=== PATIENT | female | born 1940 | race Native Hawaiian/Other Pacific Islander ===

== ENCOUNTER 2016-09-06 08:35 | Inpatient (IN) | payer OTHER ==
[~2016-09-06 08:35] MED LIST: ACET-206 PO; ACTOS15 MG PO; BACLOFEN10 MG PO; BINOSTO70 MG PO; CELEXA40 MG PO; FERROUS SULF325 M1 PO; FLUT0.05 INH; FURO40TA93 PO; GABA300C2 PO; MAG-OXIDE400 MG PO; OLAN10TA2 PO; SENNA LAX8.6 MG PO; SIMV40TA57 PO; TRAM50TA PO
== END 2016-10-07 08:00 | disposition still patient (30) ==
LOC: PAVA 08:35
PROVIDERS: ADMIT Internal Medicine
DX: Z51.89 Encounter for other specified aftercare (principal)

== ENCOUNTER 2016-10-07 09:00 | Inpatient (IN) | payer OTHER | END 2016-11-07 08:37 | disposition still patient (30) | LOC: PAVA 09:00 | PROVIDERS: ADMIT Internal Medicine | DX: Z51.89 Encounter for other specified aftercare (principal) ==

== ENCOUNTER 2016-10-12 05:07 | Outpatient (CLI) | payer OTHER ==
[2016-10-12 06:16] LABS: PLATELET COUNT 197 K/uL (152-353)
[2016-10-12 06:38] LABS: POTASSIUM 3.7 mmol/L (3.6-5.2); SODIUM 130 mmol/L (136-145)
== END 2016-10-12 06:07 | disposition home or self-care (01) ==
LOC: LAB 05:07
PROVIDERS: Internal Medicine
DX: Z79.899 Other long term (current) drug therapy (principal); E11.9 Type 2 diabetes mellitus without complications; I10 Essential (primary) hypertension; Z79.01 Long term (current) use of anticoagulants; Z51.81 Encounter for therapeutic drug level monitoring
CPT/HCPCS: 36415; 80053; 80164; 83036; 85027; 85610

== ENCOUNTER 2016-10-20 14:41 | Outpatient (CLI) | payer OTHER | END 2016-10-20 20:59 | disposition home or self-care (01) | LOC: LAB 14:41 | DX: R82.99 Other abnormal findings in urine (principal) | CPT/HCPCS: 81000 ==

== ENCOUNTER 2016-10-29 05:30 | Outpatient (CLI) | payer OTHER | END 2016-10-29 23:11 | disposition home or self-care (01) | LOC: LAB 05:30 | DX: Z51.81 Encounter for therapeutic drug level monitoring (principal); R45.83 Excessive crying of child, adolescent or adult | CPT/HCPCS: 36415; 80164 ==

== ENCOUNTER 2016-11-07 09:12 | Inpatient (IN) | payer OTHER | END 2016-12-05 08:17 | disposition still patient (30) | LOC: PAVA 09:12 | PROVIDERS: ADMIT Internal Medicine | DX: Z51.89 Encounter for other specified aftercare (principal) ==

== ENCOUNTER 2016-11-08 04:43 | Outpatient (CLI) | payer OTHER | END 2016-11-08 06:43 | disposition home or self-care (01) | LOC: LAB 04:43 | DX: Z79.899 Other long term (current) drug therapy (principal); Z51.81 Encounter for therapeutic drug level monitoring | CPT/HCPCS: 85610 ==

== ENCOUNTER 2016-12-05 08:41 | Inpatient (IN) | payer OTHER | END 2017-01-05 08:02 | disposition still patient (30) | LOC: PAVA 08:41 | PROVIDERS: ADMIT Internal Medicine | DX: Z51.89 Encounter for other specified aftercare (principal) ==

== ENCOUNTER 2016-12-12 04:29 | Outpatient (CLI) | payer OTHER | END 2016-12-12 19:08 | disposition home or self-care (01) | LOC: LAB 04:29 | DX: Z79.01 Long term (current) use of anticoagulants (principal); Z51.81 Encounter for therapeutic drug level monitoring | CPT/HCPCS: 36415; 85610 ==

== ENCOUNTER 2016-12-21 07:13 | Outpatient (CLI) | payer OTHER ==
[2016-12-21 07:54] LABS: POTASSIUM 3.9 mmol/L (3.6-5.2); SODIUM 136 mmol/L (136-145)
== END 2016-12-21 08:13 | disposition home or self-care (01) ==
LOC: LAB 07:13
PROVIDERS: Internal Medicine
DX: I10 Essential (primary) hypertension (principal); E11.9 Type 2 diabetes mellitus without complications; K21.9 Gastro-esophageal reflux disease without esophagitis
CPT/HCPCS: 36415; 80048

== ENCOUNTER 2017-01-05 09:49 | Inpatient (IN) | payer OTHER | END 2017-02-04 08:30 | disposition still patient (30) | LOC: PAVA 09:49 | PROVIDERS: ADMIT Internal Medicine | DX: Z51.89 Encounter for other specified aftercare (principal) ==

== ENCOUNTER 2017-01-07 09:07 | Outpatient (CLI) | payer OTHER | END 2017-01-07 10:07 | disposition home or self-care (01) | LOC: LAB 09:07 | PROVIDERS: Internal Medicine | DX: E11.9 Type 2 diabetes mellitus without complications (principal); Z79.899 Other long term (current) drug therapy; Z79.01 Long term (current) use of anticoagulants; Z51.81 Encounter for therapeutic drug level monitoring | CPT/HCPCS: 36415; 80061; 83036; 83735; 85610 ==

== ENCOUNTER 2017-01-22 16:07 | Outpatient (CLI) | payer OTHER | END 2017-01-22 19:16 | disposition home or self-care (01) | LOC: LAB 16:07 | DX: E83.42 Hypomagnesemia (principal) | CPT/HCPCS: 83735 ==

== ENCOUNTER 2017-01-28 16:23 | Outpatient (CLI) | payer OTHER | END 2017-01-28 19:35 | disposition home or self-care (01) | LOC: LAB 16:23 | DX: Z16.24 Resistance to multiple antibiotics (principal) | CPT/HCPCS: 87081 ==

== ENCOUNTER 2017-02-04 08:48 | Inpatient (IN) | payer OTHER | END 2017-03-07 08:10 | disposition still patient (30) | LOC: PAVA 08:48 | PROVIDERS: ADMIT Internal Medicine | DX: Z51.89 Encounter for other specified aftercare (principal) ==

== ENCOUNTER 2017-02-06 06:44 | Outpatient (CLI) | payer OTHER | END 2017-02-06 19:08 | disposition home or self-care (01) | LOC: LAB 06:44 | DX: Z79.01 Long term (current) use of anticoagulants (principal) | CPT/HCPCS: 36415; 85610 ==

== ENCOUNTER 2017-02-08 05:49 | Outpatient (CLI) | payer OTHER | END 2017-02-08 07:00 | disposition home or self-care (01) | LOC: LAB 05:49 | DX: Z79.01 Long term (current) use of anticoagulants (principal); Z51.81 Encounter for therapeutic drug level monitoring | CPT/HCPCS: 36415; 85610 ==

== ENCOUNTER 2017-02-22 06:11 | Outpatient (CLI) | payer OTHER | END 2017-02-22 07:15 | disposition home or self-care (01) | LOC: LAB 06:11 | DX: Z79.01 Long term (current) use of anticoagulants (principal); Z51.81 Encounter for therapeutic drug level monitoring | CPT/HCPCS: 85610 ==

== ENCOUNTER 2017-03-07 06:35 | Outpatient (CLI) | payer OTHER | END 2017-03-07 19:13 | disposition home or self-care (01) | LOC: LAB 06:35 | DX: Z79.899 Other long term (current) drug therapy (principal); Z79.01 Long term (current) use of anticoagulants; Z51.81 Encounter for therapeutic drug level monitoring | CPT/HCPCS: 36415; 85610 ==

== ENCOUNTER 2017-03-07 08:25 | Inpatient (IN) | payer OTHER | END 2017-04-06 14:57 | disposition still patient (30) | LOC: PAVA 08:25 | PROVIDERS: ADMIT Internal Medicine | DX: Z51.89 Encounter for other specified aftercare (principal) ==

== ENCOUNTER 2017-03-15 12:02 | Outpatient (CLI) | payer OTHER | END 2017-03-15 19:28 | disposition home or self-care (01) | LOC: LAB 12:02 | DX: M85.88 Other specified disorders of bone density and structure, other site (principal) | CPT/HCPCS: 82310 ==

== ENCOUNTER 2017-04-06 15:09 | Inpatient (IN) | payer OTHER | END 2017-05-07 08:36 | disposition still patient (30) | LOC: PAVA 15:09 | PROVIDERS: ADMIT Internal Medicine | DX: Z51.89 Encounter for other specified aftercare (principal) ==

== ENCOUNTER 2017-04-11 07:14 | Outpatient (CLI) | payer OTHER ==
[2017-04-11 08:22] LABS: PLATELET COUNT 127 K/uL (152-353)
[2017-04-11 09:06] LABS: POTASSIUM 3.9 mmol/L (3.6-5.2); SODIUM 141 mmol/L (136-145)
== END 2017-04-11 17:51 | disposition home or self-care (01) ==
LOC: LAB 07:14
PROVIDERS: Internal Medicine
DX: Z79.899 Other long term (current) drug therapy (principal); E11.9 Type 2 diabetes mellitus without complications; I10 Essential (primary) hypertension; D68.8 Other specified coagulation defects; Z51.81 Encounter for therapeutic drug level monitoring
CPT/HCPCS: 80053; 80164; 83036; 85027; 85610

== ENCOUNTER 2017-04-30 03:41 | Outpatient (CLI) | payer OTHER | END 2017-04-30 04:45 | disposition home or self-care (01) | LOC: LAB 03:41 | DX: Z79.01 Long term (current) use of anticoagulants (principal); Z51.81 Encounter for therapeutic drug level monitoring | CPT/HCPCS: 36415; 85610 ==

== ENCOUNTER 2017-05-07 09:12 | Inpatient (IN) | payer OTHER | END 2017-06-07 08:11 | disposition still patient (30) | LOC: PAVA 09:12 | PROVIDERS: ADMIT Internal Medicine | DX: Z51.89 Encounter for other specified aftercare (principal) ==

== ENCOUNTER 2017-05-08 06:57 | Outpatient (CLI) | payer OTHER | END 2017-05-08 19:40 | disposition home or self-care (01) | LOC: LAB 06:57 | DX: Z79.01 Long term (current) use of anticoagulants (principal); Z51.81 Encounter for therapeutic drug level monitoring | CPT/HCPCS: 36415; 85610 ==

== ENCOUNTER 2017-06-07 08:27 | Inpatient (IN) | payer OTHER | END 2017-07-07 09:08 | disposition still patient (30) | LOC: PAVA 08:27 | PROVIDERS: ADMIT Internal Medicine | DX: Z51.89 Encounter for other specified aftercare (principal) ==

== ENCOUNTER 2017-06-10 06:43 | Outpatient (CLI) | payer OTHER | END 2017-06-10 18:58 | disposition home or self-care (01) | LOC: LAB 06:43 | DX: Z79.899 Other long term (current) drug therapy (principal); Z51.81 Encounter for therapeutic drug level monitoring | CPT/HCPCS: 85610 ==

== ENCOUNTER 2017-07-07 09:23 | Inpatient (IN) | payer OTHER | END 2017-08-07 10:24 | disposition still patient (30) | LOC: PAVA 09:23 | PROVIDERS: ADMIT Internal Medicine ==

== ENCOUNTER 2017-07-10 05:26 | Outpatient (CLI) | payer OTHER | END 2017-07-10 06:30 | disposition home or self-care (01) | LOC: LAB 05:26 | DX: E11.9 Type 2 diabetes mellitus without complications (principal); Z79.899 Other long term (current) drug therapy; Z79.01 Long term (current) use of anticoagulants; Z51.81 Encounter for therapeutic drug level monitoring | CPT/HCPCS: 83036; 83735; 85610 ==

== ENCOUNTER 2017-08-07 12:23 | Inpatient (IN) | payer OTHER | END 2017-09-06 08:12 | disposition still patient (30) | LOC: PAVA 12:23 | PROVIDERS: ADMIT Internal Medicine ==

== ENCOUNTER 2017-08-09 05:25 | Outpatient (CLI) | payer OTHER | END 2017-08-09 06:25 | disposition home or self-care (01) | LOC: LAB 05:25 | DX: Z79.01 Long term (current) use of anticoagulants (principal); Z51.81 Encounter for therapeutic drug level monitoring | CPT/HCPCS: 85610 ==

== ENCOUNTER 2017-09-06 08:54 | Inpatient (IN) | payer OTHER | END 2017-10-07 08:30 | disposition still patient (30) | LOC: PAVA 08:54 | PROVIDERS: ADMIT Internal Medicine ==

== ENCOUNTER 2017-09-11 06:06 | Outpatient (CLI) | payer OTHER | END 2017-09-11 21:07 | disposition home or self-care (01) | LOC: LAB 06:06 | DX: Z79.899 Other long term (current) drug therapy (principal); Z79.01 Long term (current) use of anticoagulants; Z51.81 Encounter for therapeutic drug level monitoring | CPT/HCPCS: 82310; 85610 ==

== ENCOUNTER 2017-10-01 10:32 | Outpatient (CLI) | payer OTHER ==
[2017-10-01 14:46] LABS: PLATELET COUNT 111 K/uL (152-353)
[2017-10-01 14:50] LABS: POTASSIUM 3.7 mmol/L (3.6-5.2); SODIUM 139 mmol/L (136-145)
== END 2017-10-01 19:29 | disposition home or self-care (01) ==
LOC: RAD 10:32 → LAB 10:32 → RAD 19:29
PROVIDERS: Internal Medicine
DX: J20.9 Acute bronchitis, unspecified (principal); R06.02 Shortness of breath
CPT/HCPCS: 80048; 83880; 85027

== ENCOUNTER 2017-10-02 05:04 | Outpatient (CLI) | payer OTHER | END 2017-10-02 19:05 | disposition home or self-care (01) | LOC: LAB 05:04 | DX: N39.0 Urinary tract infection, site not specified (principal) | CPT/HCPCS: 81000; 87077; 87086; 87088; 87186 ==

== ENCOUNTER 2017-10-07 09:05 | Inpatient (IN) | payer OTHER | END 2017-11-07 08:31 | disposition still patient (30) | LOC: PAVA 09:05 | PROVIDERS: ADMIT Internal Medicine ==

== ENCOUNTER 2017-10-10 05:11 | Outpatient (CLI) | payer OTHER ==
[2017-10-10 06:16] LABS: PLATELET COUNT 105 K/uL (152-353)
[2017-10-10 06:48] LABS: POTASSIUM 3.3 mmol/L (3.6-5.2); SODIUM 141 mmol/L (136-145)
== END 2017-10-10 21:42 | disposition home or self-care (01) ==
LOC: LAB 05:11
PROVIDERS: Internal Medicine
DX: R79.1 Abnormal coagulation profile (principal); Z51.81 Encounter for therapeutic drug level monitoring; E11.9 Type 2 diabetes mellitus without complications
CPT/HCPCS: 80053; 80164; 83036; 85027; 85610

== ENCOUNTER 2017-10-21 13:16 | Outpatient (CLI) | payer OTHER | END 2017-10-21 22:02 | disposition home or self-care (01) | LOC: RAD 13:16 | DX: R09.02 Hypoxemia (principal) ==

== ENCOUNTER 2017-11-07 09:37 | Inpatient (IN) | payer OTHER | END 2017-12-05 08:07 | disposition still patient (30) | LOC: PAVA 09:37 | PROVIDERS: ADMIT Internal Medicine ==

== ENCOUNTER 2017-11-11 06:33 | Outpatient (CLI) | payer OTHER | END 2017-11-11 20:21 | disposition home or self-care (01) | LOC: LAB 06:33 | DX: Z79.899 Other long term (current) drug therapy (principal); Z51.81 Encounter for therapeutic drug level monitoring | CPT/HCPCS: 36415; 85610 ==

== ENCOUNTER 2017-12-05 08:55 | Inpatient (IN) | payer OTHER | END 2018-01-05 08:00 | disposition still patient (30) | LOC: PAVA 08:55 | PROVIDERS: ADMIT Internal Medicine ==

== ENCOUNTER 2017-12-16 03:09 | Outpatient (CLI) | payer OTHER | END 2017-12-16 21:29 | disposition home or self-care (01) | LOC: LAB 03:09 | DX: Z79.01 Long term (current) use of anticoagulants (principal); Z51.81 Encounter for therapeutic drug level monitoring | CPT/HCPCS: 36415; 85610 ==

== ENCOUNTER 2018-01-05 09:00 | Inpatient (IN) | payer OTHER | END 2018-02-04 08:11 | disposition still patient (30) | LOC: PAVA 09:00 | PROVIDERS: ADMIT Internal Medicine ==

== ENCOUNTER 2018-01-08 08:46 | Outpatient (CLI) | payer OTHER | END 2018-01-08 22:25 | disposition home or self-care (01) | LOC: RAD 08:46 | DX: R05 Cough (principal) ==

== ENCOUNTER 2018-01-10 10:41 | Outpatient (CLI) | payer OTHER | END 2018-01-10 20:25 | disposition home or self-care (01) | LOC: LAB 10:41 | PROVIDERS: Internal Medicine | DX: E11.9 Type 2 diabetes mellitus without complications (principal); Z79.899 Other long term (current) drug therapy; R79.1 Abnormal coagulation profile | CPT/HCPCS: 36415; 80061; 83036; 83735; 85610 ==

== ENCOUNTER 2018-01-24 06:07 | Outpatient (CLI) | payer OTHER | END 2018-01-24 22:23 | disposition home or self-care (01) | LOC: LAB 06:07 | DX: Z79.01 Long term (current) use of anticoagulants (principal); Z51.81 Encounter for therapeutic drug level monitoring | CPT/HCPCS: 36415; 85610 ==

== ENCOUNTER 2018-01-27 04:15 | Outpatient (CLI) | payer OTHER | END 2018-01-27 22:48 | disposition home or self-care (01) | LOC: LAB 04:15 → RAD 04:15 → LAB 22:48 | DX: R79.1 Abnormal coagulation profile (principal); R06.02 Shortness of breath | CPT/HCPCS: 36415; 85610 ==

== ENCOUNTER 2018-02-04 08:45 | Inpatient (IN) | payer OTHER ==
[~2018-02-04] VITALS: Ht 33 cm; Wt 0.5 kg
[2018-02-16] MEDS ORDERED: CALCIUM 600+D31 TA2 PO (00:25)
[2018-02-16] MEDS ORDERED: TYLENOL325 MG PO (00:31)
[2018-02-16] MEDS ORDERED: ACTOS45 MG PO (00:34)
[2018-02-16] MEDS ORDERED: DIVA500T2 PO (00:36)
[2018-02-16] MEDS ORDERED: DOCU100C10 PO (00:39)
[2018-02-16] MEDS ORDERED: LEXAPRO10 MG PO (00:41)
[2018-02-16] MEDS ORDERED: MULTIVITAMIN AD1 TAB PO (00:42)
[2018-02-16] MEDS ORDERED: OMEP20CA PO (00:44)
[2018-02-16] MEDS ORDERED: NAMZARIC 28-101 CAP PO (00:45)
[2018-02-16] MEDS ORDERED: WARF4TAB7 PO (00:46)
[2018-02-16] MEDS ORDERED: DENO60SO SC (00:49)
[2018-02-16] MEDS ORDERED: ALBUSOL INH (00:54)
[2018-02-16] MEDS ORDERED: SENNA-PLUS1 TAB PO (00:56)
== END 2018-03-07 08:20 | disposition still patient (30) ==
LOC: PAVA 08:45
PROVIDERS: ADMIT Internal Medicine
DX: J96.00 Acute respiratory failure, unspecified whether with hypoxia or hypercapnia (principal); J81.1 Chronic pulmonary edema; I69.351 Hemiplegia and hemiparesis following cerebral infarction affecting right dominant side; E87.6 Hypokalemia; E11.9 Type 2 diabetes mellitus without complications; I48.91 Unspecified atrial fibrillation; R91.8 Other nonspecific abnormal finding of lung field; I25.9 Chronic ischemic heart disease, unspecified; I10 Essential (primary) hypertension; K21.9 Gastro-esophageal reflux disease without esophagitis
CPT/HCPCS: 82550; 82553; 83735; 84484

== ENCOUNTER 2018-02-10 03:31 | Outpatient (CLI) | payer OTHER | END 2018-02-10 18:50 | disposition home or self-care (01) | LOC: LABW 03:31 | DX: Z79.899 Other long term (current) drug therapy (principal); Z51.81 Encounter for therapeutic drug level monitoring | CPT/HCPCS: 36415; 85610 ==

== ENCOUNTER 2018-02-15 14:25 | Inpatient (IN) | payer OTHER ==
[~2018-02-15] VITALS: Ht 162.6 cm; Wt 98.0 kg
[2018-02-15] VITALS (15 sets, daily range): BP systolic 84–121; BP diastolic 45–69; TEMP 97.9–98.7; Ht 162.6 cm; Wt 98.0 kg
[2018-02-15 14:42] LABS: PLATELET COUNT 113 K/uL (152-353)
[2018-02-15 14:51] LABS: POTASSIUM 3.1 mmol/L (3.6-5.2)
[2018-02-16] VITALS (26 sets, daily range): BP systolic 90–118; BP diastolic 45–70; TEMP 98–101.6
[2018-02-16] MEDS ORDERED: CALCIUM 600+D31 TA2 PO (00:25)
[2018-02-16] MEDS ORDERED: TYLENOL325 MG PO (00:31)
[2018-02-16] MEDS ORDERED: ACTOS45 MG PO (00:34)
[2018-02-16] MEDS ORDERED: DIVA500T2 PO (00:36)
[2018-02-16] MEDS ORDERED: DOCU100C10 PO (00:39)
[2018-02-16] MEDS ORDERED: LEXAPRO10 MG PO (00:41)
[2018-02-16] MEDS ORDERED: MULTIVITAMIN AD1 TAB PO (00:42)
[2018-02-16] MEDS ORDERED: OMEP20CA PO (00:44)
[2018-02-16] MEDS ORDERED: NAMZARIC 28-101 CAP PO (00:45)
[2018-02-16] MEDS ORDERED: WARF4TAB7 PO (00:46)
[2018-02-16] MEDS ORDERED: DENO60SO SC (00:49)
[2018-02-16] MEDS ORDERED: ALBUSOL INH (00:54)
[2018-02-16] MEDS ORDERED: SENNA-PLUS1 TAB PO (00:56)
[2018-02-16 07:58] LABS: PLATELET COUNT 102 K/uL (152-353)
[2018-02-16 08:04] LABS: POTASSIUM 3.6 mmol/L (3.6-5.2)
[2018-02-17] VITALS (24 sets, daily range): BP systolic 80–132; BP diastolic 26–86; TEMP 98.1–99
[2018-02-18] VITALS (22 sets, daily range): BP systolic 69–117; BP diastolic 30–90; TEMP 98–99.3
[2018-02-18 06:14] LABS: PLATELET COUNT 119 K/uL (152-353)
[2018-02-18 06:46] LABS: POTASSIUM 3.2 mmol/L (3.6-5.2)
[2018-02-19] VITALS (12 sets, daily range): BP systolic 92–117; BP diastolic 37–65; TEMP 98.1–99
[2018-02-19 05:36] LABS: PLATELET COUNT 136 K/uL (152-353)
[2018-02-19 06:05] LABS: POTASSIUM 3.5 mmol/L (3.6-5.2)
== END 2018-02-19 12:17 | DRG 291 ==
LOC: LAB 14:25 → ICU 16:00
PROVIDERS: ADMIT Internal Medicine
DX: I50.33 Acute on chronic diastolic (congestive) heart failure (principal); J96.01 Acute respiratory failure with hypoxia; J18.8 Other pneumonia, unspecified organism; J81.1 Chronic pulmonary edema; I69.851 Hemiplegia and hemiparesis following other cerebrovascular disease affecting right dominant side; E87.6 Hypokalemia; E11.9 Type 2 diabetes mellitus without complications; I10 Essential (primary) hypertension; E78.00 Pure hypercholesterolemia, unspecified; I48.91 Unspecified atrial fibrillation; R91.8 Other nonspecific abnormal finding of lung field
CPT/HCPCS: 36415; 51702; 80048; 80053; 81000; 82040; 82247; 82550; 82553; 82962; 83735; 83880; 84155; 84450; 84460; 84484; 85027; 87040; 93005; 94760; J0696; J1940; J1956

== ENCOUNTER 2018-03-07 08:37 | Inpatient (IN) | payer OTHER ==
[~2018-03-07 08:37] MED LIST changes: +ACTOS45 MG PO; +ALBUSOL INH; +CALCIUM 600+D31 TA2 PO; +DENO60SO SC; +DIVA500T2 PO; +DOCU100C10 PO; +LEXAPRO10 MG PO; +MULTIVITAMIN AD1 TAB PO; +NAMZARIC 28-101 CAP PO; +OMEP20CA PO; +SENNA-PLUS1 TAB PO; +TYLENOL325 MG PO; +WARF4TAB7 PO
== END 2018-04-06 14:15 | disposition still patient (30) ==
LOC: PAVA 08:37
PROVIDERS: ADMIT Internal Medicine

== ENCOUNTER 2018-03-10 04:35 | Outpatient (CLI) | payer OTHER | END 2018-03-10 21:57 | disposition home or self-care (01) | LOC: LAB 04:35 | DX: Z79.899 Other long term (current) drug therapy (principal); Z51.81 Encounter for therapeutic drug level monitoring; E78.4 Other hyperlipidemia | CPT/HCPCS: 82310; 85610 ==

== ENCOUNTER 2018-03-13 22:12 | Outpatient (CLI) | payer OTHER ==
[2018-03-13 22:46] LABS: PLATELET COUNT 99 K/uL (152-353)
== END 2018-03-13 23:10 | disposition home or self-care (01) ==
LOC: LAB 22:12
PROVIDERS: Internal Medicine
DX: J18.9 Pneumonia, unspecified organism (principal); R82.99 Other abnormal findings in urine
CPT/HCPCS: 81000; 85027; 87088

== ENCOUNTER 2018-03-26 22:44 | Outpatient (CLI) | payer OTHER | END 2018-03-26 23:30 | disposition home or self-care (01) | LOC: LAB 22:44 | DX: Z79.2 Long term (current) use of antibiotics (principal); Z87.440 Personal history of urinary (tract) infections; R82.99 Other abnormal findings in urine | CPT/HCPCS: 81000; 87088 ==

== ENCOUNTER 2018-04-06 14:30 | Inpatient (IN) | payer OTHER | END 2018-05-07 08:00 | disposition still patient (30) | LOC: PAVA 14:30 | PROVIDERS: ADMIT Internal Medicine ==

== ENCOUNTER 2018-04-10 03:54 | Outpatient (CLI) | payer OTHER ==
[2018-04-10 05:56] LABS: PLATELET COUNT 118 K/uL (152-353)
[2018-04-10 06:20] LABS: POTASSIUM 5.2 mmol/L (3.6-5.2)
== END 2018-04-10 19:27 | disposition home or self-care (01) ==
LOC: LAB 03:54
PROVIDERS: Internal Medicine
DX: Z79.899 Other long term (current) drug therapy (principal); Z51.81 Encounter for therapeutic drug level monitoring; E11.9 Type 2 diabetes mellitus without complications
CPT/HCPCS: 80053; 80164; 83036; 85027; 85610

== ENCOUNTER 2018-04-21 03:35 | Outpatient (CLI) | payer OTHER | END 2018-04-21 22:59 | disposition home or self-care (01) | LOC: LAB 03:35 | DX: N39.0 Urinary tract infection, site not specified (principal) | CPT/HCPCS: 81000 ==

== ENCOUNTER 2018-05-07 09:00 | Inpatient (IN) | payer OTHER | END 2018-06-07 09:56 | disposition still patient (30) | LOC: PAVA 09:00 | PROVIDERS: ADMIT Internal Medicine ==

== ENCOUNTER 2018-05-12 05:29 | Outpatient (CLI) | payer OTHER | END 2018-05-12 19:33 | disposition home or self-care (01) | LOC: LAB 05:29 | DX: Z79.899 Other long term (current) drug therapy (principal); D68.9 Coagulation defect, unspecified | CPT/HCPCS: 36415; 85610 ==

== ENCOUNTER 2018-06-07 10:08 | Inpatient (IN) | payer OTHER | END 2018-07-07 08:39 | disposition still patient (30) | LOC: PAVA 10:08 | PROVIDERS: ADMIT Internal Medicine ==

== ENCOUNTER 2018-06-13 05:33 | Outpatient (CLI) | payer OTHER | END 2018-06-13 23:23 | disposition home or self-care (01) | LOC: LAB 05:33 | DX: Z51.81 Encounter for therapeutic drug level monitoring (principal) | CPT/HCPCS: 36415; 85610 ==

== ENCOUNTER 2018-07-07 08:57 | Inpatient (IN) | payer OTHER | END 2018-08-07 08:10 | disposition still patient (30) | LOC: PAVA 08:57 | PROVIDERS: ADMIT Internal Medicine ==

== ENCOUNTER 2018-07-10 06:27 | Outpatient (CLI) | payer OTHER | END 2018-07-10 20:31 | disposition home or self-care (01) | LOC: LAB 06:27 | DX: E11.9 Type 2 diabetes mellitus without complications (principal); R79.1 Abnormal coagulation profile | CPT/HCPCS: 36415; 83036; 83735; 85610 ==

== ENCOUNTER 2018-08-07 08:25 | Inpatient (IN) | payer OTHER ==
[2018-08-17] MEDS ORDERED: NAMZARIC 28-101 CAP PO (03:26)
== END 2018-09-06 08:04 | disposition still patient (30) ==
LOC: PAVA 08:25
PROVIDERS: ADMIT Internal Medicine
DX: J18.9 Pneumonia, unspecified organism (principal); I69.351 Hemiplegia and hemiparesis following cerebral infarction affecting right dominant side; F32.89 Other specified depressive episodes; E11.9 Type 2 diabetes mellitus without complications; E78.5 Hyperlipidemia, unspecified; K21.9 Gastro-esophageal reflux disease without esophagitis; I10 Essential (primary) hypertension

== ENCOUNTER 2018-08-08 12:04 | Outpatient (CLI) | payer OTHER ==
[2018-08-08 12:44] LABS: PLATELET COUNT 136 K/uL (152-353)
[2018-08-08 13:09] LABS: POTASSIUM 3.5 mmol/L (3.6-5.2)
== END 2018-08-08 21:50 | disposition home or self-care (01) ==
LOC: LAB 12:04
PROVIDERS: Internal Medicine
DX: Z51.81 Encounter for therapeutic drug level monitoring (principal); R53.1 Weakness; Z79.899 Other long term (current) drug therapy; R53.81 Other malaise; R53.83 Other fatigue; R41.82 Altered mental status, unspecified
CPT/HCPCS: 36415; 80053; 81000; 85027; 85610

== ENCOUNTER 2018-08-14 08:51 | Outpatient (CLI) | payer OTHER | END 2018-08-14 20:11 | disposition home or self-care (01) | LOC: CT 08:51 | DX: R41.82 Altered mental status, unspecified (principal); R53.83 Other fatigue ==

== ENCOUNTER 2018-08-16 19:55 | Inpatient (IN) | payer OTHER ==
[~2018-08-16] VITALS: Ht 157.5 cm; Wt 93.1 kg
[2018-08-16 19:55] VITALS: BP 141/72; TEMP 98.5
[2018-08-16 20:19] LABS: PLATELET COUNT 214 K/uL (152-353)
[2018-08-16 20:28] VITALS: TEMP 101.8
[2018-08-16 20:39] LABS: POTASSIUM 2.6 mmol/L (3.6-5.2)
[2018-08-16 22:42] VITALS: BP 149/69; TEMP 99.1
[2018-08-17 02:16] VITALS: BP 121/62; TEMP 99.4; Ht 157.5 cm; Wt 93.1 kg
[2018-08-17] MEDS ORDERED: NAMZARIC 28-101 CAP PO (03:26)
[2018-08-17 04:12] VITALS: BP 121/62; TEMP 99.4
[2018-08-17 05:24] LABS: PLATELET COUNT 181 K/uL (152-353)
[2018-08-17 07:09] LABS: POTASSIUM 2.5 mmol/L (3.6-5.2)
[2018-08-17 08:04] VITALS: BP 123/72; TEMP 97.3
[2018-08-17 12:06] VITALS: BP 101/45; TEMP 68.7
[2018-08-17 16:08] VITALS: BP 104/52; TEMP 98.6
[2018-08-17 20:19] VITALS: BP 112/64; TEMP 97.9
[2018-08-18 00:57] VITALS: BP 120/60; TEMP 98
[2018-08-18 04:00] VITALS: BP 100/64; TEMP 98
[2018-08-18 08:00] VITALS: BP 98/56; TEMP 97.6
[2018-08-18 12:00] VITALS: BP 112/65
[2018-08-18 16:00] VITALS: BP 100/50; TEMP 97.3
[2018-08-18 20:00] VITALS: BP 99/57; TEMP 97.7
[2018-08-19] VITALS: BP 107/40; TEMP 98.5
[2018-08-19 04:00] VITALS: BP 106/53; TEMP 98.1
[2018-08-19 06:25] LABS: POTASSIUM 4.4 mmol/L (3.6-5.2)
[2018-08-19 08:00] VITALS: BP 99/73; TEMP 98.2
[2018-08-19 12:00] VITALS: BP 97/50; TEMP 98
== END 2018-08-19 16:50 | DRG 193 ==
LOC: ED 19:55 → MED/SURG 21:20
PROVIDERS: Family Medicine; ADMIT Internal Medicine
DX: J18.8 Other pneumonia, unspecified organism (principal); J96.01 Acute respiratory failure with hypoxia; J44.0 Chronic obstructive pulmonary disease with (acute) lower respiratory infection; I13.0 Hypertensive heart and chronic kidney disease with heart failure and stage 1 through stage 4 chronic kidney disease, or unspecified chronic kidney disease; I50.1 Left ventricular failure, unspecified; I69.351 Hemiplegia and hemiparesis following cerebral infarction affecting right dominant side; J44.1 Chronic obstructive pulmonary disease with (acute) exacerbation; M81.8 Other osteoporosis without current pathological fracture; E11.22 Type 2 diabetes mellitus with diabetic chronic kidney disease; N18.2 Chronic kidney disease, stage 2 (mild)
CPT/HCPCS: 36415; 80048; 80053; 83605; 83880; 85027; 85610; 94760; 96361; 96365; 96372; 99284; J0456; J0696; J1940; J3430

== ENCOUNTER 2018-09-06 08:17 | Inpatient (IN) | payer OTHER | END 2018-10-07 10:20 | disposition still patient (30) | LOC: PAVA 08:17 | PROVIDERS: ADMIT Internal Medicine | CPT/HCPCS: 82310; 85610 ==

== ENCOUNTER 2018-09-11 03:45 | Outpatient (CLI) | payer OTHER | END 2018-09-11 23:32 | disposition home or self-care (01) | LOC: LAB 03:45 | DX: Z79.899 Other long term (current) drug therapy (principal); E78.5 Hyperlipidemia, unspecified ==

== ENCOUNTER 2018-09-12 13:37 | Outpatient (CLI) | payer OTHER | END 2018-09-12 23:14 | disposition home or self-care (01) | LOC: RAD 13:37 | DX: Z78.0 Asymptomatic menopausal state (principal) ==

== ENCOUNTER 2018-10-07 10:45 | Inpatient (IN) | payer OTHER | END 2018-11-07 14:16 | disposition still patient (30) | LOC: PAVA 10:45 | PROVIDERS: ADMIT Internal Medicine ==

== ENCOUNTER 2018-10-20 03:42 | Outpatient (CLI) | payer OTHER ==
[2018-10-20 04:37] LABS: PLATELET COUNT 162 K/uL (152-353)
[2018-10-20 04:58] LABS: POTASSIUM 4.1 mmol/L (3.6-5.2)
== END 2018-10-20 22:15 | disposition home or self-care (01) ==
LOC: LAB 03:42
PROVIDERS: Internal Medicine
DX: Z79.01 Long term (current) use of anticoagulants (principal); Z51.81 Encounter for therapeutic drug level monitoring; I10 Essential (primary) hypertension; E11.9 Type 2 diabetes mellitus without complications
CPT/HCPCS: 80053; 80164; 83036; 85027; 85610

== ENCOUNTER 2018-10-24 11:45 | Outpatient (CLI) | payer OTHER | END 2018-10-24 20:25 | disposition home or self-care (01) | LOC: RAD 11:45 | DX: T17.928A Food in respiratory tract, part unspecified causing other injury, initial encounter (principal) ==

== ENCOUNTER 2018-11-03 02:41 | Outpatient (CLI) | payer OTHER | END 2018-11-03 19:07 | disposition home or self-care (01) | LOC: LAB 02:41 | DX: R79.1 Abnormal coagulation profile (principal) | CPT/HCPCS: 36415; 85610 ==

== ENCOUNTER 2018-11-07 14:30 | Inpatient (IN) | payer OTHER | END 2018-12-05 09:14 | disposition still patient (30) | LOC: PAVA 14:30 | PROVIDERS: ADMIT Internal Medicine ==

== ENCOUNTER 2018-11-13 04:30 | Outpatient (CLI) | payer OTHER | END 2018-11-13 22:19 | LOC: LAB 04:30 | DX: Z79.899 Other long term (current) drug therapy (principal) | CPT/HCPCS: 85610 ==

== ENCOUNTER 2018-12-05 09:44 | Inpatient (IN) | payer OTHER | END 2019-01-05 07:54 | disposition still patient (30) | LOC: PAVA 09:44 | PROVIDERS: ADMIT Internal Medicine ==

== ENCOUNTER 2018-12-15 03:13 | Outpatient (CLI) | payer OTHER | END 2018-12-15 19:26 | disposition home or self-care (01) | LOC: LAB 03:13 | DX: Z79.899 Other long term (current) drug therapy (principal); R79.1 Abnormal coagulation profile | CPT/HCPCS: 36415; 85610 ==

== ENCOUNTER 2019-01-05 08:29 | Inpatient (IN) | payer OTHER | END 2019-02-04 09:39 | disposition still patient (30) | LOC: PAVA 08:29 | PROVIDERS: ADMIT Internal Medicine ==

== ENCOUNTER 2019-01-12 04:40 | Outpatient (CLI) | payer OTHER | END 2019-01-12 22:53 | disposition home or self-care (01) | LOC: LAB 04:40 | PROVIDERS: Internal Medicine | DX: E11.21 Type 2 diabetes mellitus with diabetic nephropathy (principal); E03.9 Hypothyroidism, unspecified; R79.1 Abnormal coagulation profile; Z13.220 Encounter for screening for lipoid disorders | CPT/HCPCS: 36415; 80061; 83036; 83735; 85610 ==

== ENCOUNTER 2019-02-04 10:48 | Inpatient (IN) | payer OTHER | END 2019-03-07 08:12 | disposition still patient (30) | LOC: PAVA 10:48 | PROVIDERS: ADMIT Internal Medicine | DX: Z51.89 Encounter for other specified aftercare (principal) ==

== ENCOUNTER 2019-02-05 03:45 | Outpatient (CLI) | payer OTHER | END 2019-02-05 19:45 | LOC: LAB 03:45 | DX: Z79.899 Other long term (current) drug therapy (principal) | CPT/HCPCS: 85610 ==

== ENCOUNTER 2019-03-07 08:25 | Inpatient (IN) | payer OTHER | END 2019-04-06 08:29 | disposition still patient (30) | LOC: PAVA 08:25 | PROVIDERS: ADMIT Internal Medicine ==

== ENCOUNTER 2019-03-11 05:12 | Outpatient (CLI) | payer OTHER | END 2019-03-11 23:22 | disposition home or self-care (01) | LOC: LAB 05:12 | DX: Z79.899 Other long term (current) drug therapy (principal); R79.1 Abnormal coagulation profile | CPT/HCPCS: 82310; 85610 ==

== ENCOUNTER 2019-04-06 09:13 | Inpatient (IN) | payer OTHER | END 2019-05-07 09:07 | disposition still patient (30) | LOC: PAVA 09:13 | PROVIDERS: ADMIT Internal Medicine ==

== ENCOUNTER 2019-04-07 04:42 | Outpatient (CLI) | payer OTHER ==
[2019-04-07 06:29] LABS: POTASSIUM 4.1 mmol/L (3.6-5.2)
[2019-04-07 06:34] LABS: PLATELET COUNT 164 K/uL (152-353)
== END 2019-04-07 19:06 | disposition home or self-care (01) ==
LOC: LAB 04:42
PROVIDERS: Internal Medicine
DX: I10 Essential (primary) hypertension (principal); Z79.899 Other long term (current) drug therapy; Z79.01 Long term (current) use of anticoagulants
CPT/HCPCS: 80053; 80164; 83036; 85027; 85610

== ENCOUNTER 2019-04-08 15:41 | Outpatient (CLI) | payer OTHER | END 2019-04-08 19:25 | disposition home or self-care (01) | LOC: LAB 15:41 | DX: R19.7 Diarrhea, unspecified (principal) | CPT/HCPCS: 83630; 87324; 87328; 87329; 87449 ==

== ENCOUNTER 2019-04-20 20:09 | Outpatient (CLI) | payer OTHER | END 2019-04-20 22:43 | disposition home or self-care (01) | LOC: LAB 20:09 | DX: R19.7 Diarrhea, unspecified (principal) | CPT/HCPCS: 87328; 87329 ==

== ENCOUNTER 2019-04-22 05:05 | Outpatient (CLI) | payer OTHER | END 2019-04-22 23:38 | disposition home or self-care (01) | LOC: LAB 05:05 | DX: Z79.899 Other long term (current) drug therapy (principal); Z79.01 Long term (current) use of anticoagulants | CPT/HCPCS: 36415; 85610 ==

== ENCOUNTER 2019-04-30 14:35 | Outpatient (CLI) | payer OTHER | END 2019-04-30 23:37 | disposition home or self-care (01) | LOC: LAB 14:35 | DX: A07.1 Giardiasis [lambliasis] (principal) | CPT/HCPCS: 87328; 87329 ==

== ENCOUNTER 2019-05-07 10:03 | Inpatient (IN) | payer OTHER ==
[2019-05-13] MEDS ORDERED: POTA20TA4 PO (11:57)
[2019-05-13] MEDS ORDERED: ERTAPENEM1 GM IM (12:07)
[2019-05-13] MEDS ORDERED: VANCOMYCIN HCL1 GM IV (12:07)
== END 2019-06-07 15:58 | disposition still patient (30) ==
LOC: PAVA 10:03
PROVIDERS: ADMIT Internal Medicine

== ENCOUNTER 2019-05-09 06:35 | Outpatient (CLI) | payer OTHER ==
[2019-05-09 07:07] LABS: PLATELET COUNT 183 K/uL (152-353)
[2019-05-09 07:24] LABS: POTASSIUM 3.2 mmol/L (3.6-5.2)
== END 2019-05-09 23:31 | disposition home or self-care (01) ==
LOC: LAB 06:35
PROVIDERS: Internal Medicine
DX: Z79.899 Other long term (current) drug therapy (principal); R09.89 Other specified symptoms and signs involving the circulatory and respiratory systems; Z79.01 Long term (current) use of anticoagulants
CPT/HCPCS: 36415; 80053; 85027; 85610

== ENCOUNTER 2019-05-10 07:15 | Inpatient (IN) | payer OTHER ==
[~2019-05-10] VITALS: Ht 154.9 cm; Wt 96.8 kg
--- NOTE | 2019-05-10 07:55 | NUR ---
PT ARRIVED TO ROOM 129, TRANSFERRED PT TO BED FROM [facility] BY [facility]IFT WITHOUT DIFFICULTY, PT TOLERATED WELL. V/S DONE, PT IS RESTING QUIETLY WITH EYES CLOSED, BRIEF CLEAN AND DRY, RAPID BREATHING WITH ACCESSORY MUSCLES, BREATH SOUNDS EXPIRATORY WHEEZING IN ALL QUADRANTS AND CRACKLES AT TIMES, WOKE UP PATIENT AND ENCOURAGED TO COUGH, PT IS VERY DROWSY, UNABLE TO GET HER TO WAKE UP ENOUGH TO TAKE A DEEP BREATH AND COUGH. LAB IN TO DRAW BLOOD. PT WAS RUNNING A TEMP OF 100.9AX UPON ARRIVAL TO FLOOR, PT WAS GIVEN TYLENOL 650MG PO AT [facility] THIS MORNING @ 0530. WILL RECHECK AND CONTINUE TO MONITOR. NO BREAKDOWN NOTED, PT HAS RT SIDED WEAKNESS, DOES NOT WALK, AND IS BED BOUND.
[2019-05-10 08:51] LABS: PLATELET COUNT 200 K/uL (152-353)
[2019-05-10 09:05] LABS: POTASSIUM 2.8 mmol/L (3.6-5.2)
[2019-05-10 09:29] VITALS: BP 107/51; TEMP 100.9; Ht 154.9 cm; Wt 96.8 kg
--- NOTE | 2019-05-10 10:42 | NUR ---
PT DEEP SUCTIONED AT 0832 FOR SPUTUM CULTURE. NO ADVERSE REACTIONS NOTED AT THIS TIME. PRODUCTIVE COUGH NOTED AFTER PROCEDURE. NO RD NOTED AT THIS TIME.
[2019-05-10 12:00] VITALS: BP 113/51; TEMP 98.5
[2019-05-10 16:00] VITALS: BP 133/59; TEMP 99.3
--- NOTE | 2019-05-10 19:55 | NUR ---
RN TRANSITIONAL CARE WENT TO CHANGE PTS BRIEF, SMALL AMOUNT OF URINE NOTED ON BRIEF, PRESSED ON PTS BLADDER, PT C/O PAIN TO ABDOMEN, BANUELOS CATHETER INSERTED, 300ML TEA COLORED URINE IN DRAINAGE BAG, LEFT BANUELOS IN UNTIL TOMORROW MORNING WHEN DR GARZA COMES IN TO ASSESS PT. PT TOLERATED WELL
[2019-05-10 20:00] VITALS: BP 109/53; TEMP 98.7
[2019-05-10 23:55] VITALS: BP 114/54; TEMP 100
[2019-05-11 04:00] VITALS: BP 100/37; TEMP 98.4
[2019-05-11 05:33] LABS: PLATELET COUNT 178 K/uL (152-353)
[2019-05-11 05:47] LABS: POTASSIUM 3.7 mmol/L (3.6-5.2)
[2019-05-11 08:00] VITALS: BP 105/46; TEMP 98.4
[2019-05-11 12:00] VITALS: BP 111/57; TEMP 98.7
[2019-05-11 16:00] VITALS: BP 101/54; TEMP 98.9
[2019-05-11 19:53] VITALS: BP 126/60; TEMP 99.3
[2019-05-12] VITALS (7 sets, daily range): BP systolic 97–121; BP diastolic 41–59; TEMP 98.3–98.8
--- NOTE | 2019-05-12 20:10 | NUR ---
PM ASSESSMENT COMPLETE.
--- NOTE | 2019-05-13 02:00 | NUR ---
PT STATES THAT "SHE WILL KNOCK THE SHIT OUT OF ME". I INSTRUCTED PT THAT WE WERE ONLY TRYING TO GET HER CLEANED UP AND REPOSTIONED
[2019-05-13 03:53] VITALS: BP 100/36; TEMP 98
[2019-05-13 05:14] LABS: PLATELET COUNT 195 K/uL (152-353)
[2019-05-13 05:33] LABS: POTASSIUM 3.8 mmol/L (3.6-5.2)
--- NOTE | 2019-05-13 06:00 | NUR ---
ATTEMPTED TO FLOAT PTS FEET ON A PILLOW, PT DID NOT LIKE THIS AND REMOVED THE LEFT FOOT FROM THE PILLOW. L HEEL IS RED.
[2019-05-13 08:00] VITALS: BP 105/44; TEMP 98.3
[2019-05-13] MEDS ORDERED: POTA20TA4 PO (11:57)
[2019-05-13 12:00] VITALS: BP 114/77
[2019-05-13] MEDS ORDERED: VANCOMYCIN HCL1 GM IV (12:07)
[2019-05-13] MEDS ORDERED: ERTAPENEM1 GM IM (12:07)
--- NOTE | 2019-05-13 16:15 | NUR ---
PT DISCHARGED TO [facility], IV SITE CLEAN DRY AND INTACT, NO REDNESS OR EDEMA NOTED, PT TAKEN TO [facility] TO PRIVATE ROOM BY BED, [facility]IFT USED TO TRANSFER PT TO [facility]. PT TOLERATED WELL, NAD NOTED.
== END 2019-05-13 16:15 | DRG 195 ==
LOC: MED/SURG 07:15
PROVIDERS: ADMIT Internal Medicine
DX: J18.8 Other pneumonia, unspecified organism (principal); R50.9 Fever, unspecified; R13.19 Other dysphagia; Z86.73 Personal history of transient ischemic attack (TIA), and cerebral infarction without residual deficits; I10 Essential (primary) hypertension; E87.6 Hypokalemia; R09.02 Hypoxemia
CPT/HCPCS: 36415; 36416; 80048; 80053; 80202; 81000; 83605; 85027; 87040; 87070; 87088; 87205; 93005; 94640; 94664; 94760; J2185; J3370; J3490

== ENCOUNTER 2019-05-16 08:44 | Outpatient (CLI) | payer OTHER ==
[~2019-05-16 08:44] MED LIST changes: +ERTAPENEM1 GM IM; +POTA20TA4 PO; +VANCOMYCIN HCL1 GM IV
== END 2019-05-16 19:57 | disposition home or self-care (01) ==
LOC: LAB 08:44
DX: Z51.81 Encounter for therapeutic drug level monitoring (principal)
CPT/HCPCS: 36415; 80202

== ENCOUNTER 2019-06-07 03:45 | Outpatient (CLI) | payer OTHER | END 2019-06-07 23:59 | disposition home or self-care (01) | LOC: LAB 03:45 | DX: R79.1 Abnormal coagulation profile (principal); I69.351 Hemiplegia and hemiparesis following cerebral infarction affecting right dominant side | CPT/HCPCS: 85610 ==

== ENCOUNTER 2019-06-07 16:13 | Inpatient (IN) | payer OTHER | END 2019-07-07 08:05 | disposition still patient (30) | LOC: PAVA 16:13 | PROVIDERS: ADMIT Internal Medicine ==

== ENCOUNTER 2019-07-07 08:58 | Inpatient (IN) | payer OTHER | END 2019-08-07 08:51 | disposition still patient (30) | LOC: PAVA 08:58 | PROVIDERS: ADMIT Internal Medicine ==

== ENCOUNTER 2019-07-08 06:01 | Outpatient (CLI) | payer OTHER | END 2019-07-08 23:46 | disposition home or self-care (01) | LOC: LAB 06:01 | DX: E11.9 Type 2 diabetes mellitus without complications (principal); Z79.899 Other long term (current) drug therapy; Z51.81 Encounter for therapeutic drug level monitoring | CPT/HCPCS: 83036; 83735; 85610 ==

== ENCOUNTER 2019-07-22 14:26 | Outpatient (CLI) | payer OTHER | END 2019-07-22 19:12 | disposition home or self-care (01) | LOC: LAB 14:26 | DX: N89.8 Other specified noninflammatory disorders of vagina (principal) | CPT/HCPCS: 87070; 87077; 87186 ==

== ENCOUNTER 2019-08-07 05:35 | Outpatient (CLI) | payer OTHER | END 2019-08-07 22:10 | disposition home or self-care (01) | LOC: LAB 05:35 | DX: Z79.899 Other long term (current) drug therapy (principal); Z51.81 Encounter for therapeutic drug level monitoring | CPT/HCPCS: 85610 ==

== ENCOUNTER 2019-08-07 10:53 | Inpatient (IN) | payer OTHER | END 2019-09-06 08:00 | disposition still patient (30) | LOC: PAVA 10:53 | PROVIDERS: ADMIT Internal Medicine ==

== ENCOUNTER 2019-09-06 08:50 | Inpatient (IN) | payer OTHER | END 2019-10-07 07:59 | disposition still patient (30) | LOC: PAVA 08:50 | PROVIDERS: ADMIT Internal Medicine ==

== ENCOUNTER 2019-09-08 05:45 | Outpatient (CLI) | payer OTHER | END 2019-09-08 20:12 | disposition home or self-care (01) | LOC: LAB 05:45 | DX: Z79.899 Other long term (current) drug therapy (principal); Z51.81 Encounter for therapeutic drug level monitoring | CPT/HCPCS: 82310; 85610 ==

== ENCOUNTER 2019-10-01 19:03 | Outpatient (CLI) | payer OTHER | END 2019-10-01 22:33 | disposition home or self-care (01) | LOC: LAB 19:03 | DX: M54.5 Low back pain (principal) | CPT/HCPCS: 81000 ==

== ENCOUNTER 2019-10-05 13:10 | Outpatient (CLI) | payer OTHER | END 2019-10-05 21:52 | disposition home or self-care (01) | LOC: RAD 13:10 | DX: M54.5 Low back pain (principal) ==

== ENCOUNTER 2019-10-07 08:23 | Inpatient (IN) | payer OTHER | END 2019-11-07 09:31 | disposition still patient (30) | LOC: PAVA 08:23 | PROVIDERS: ADMIT Internal Medicine ==

== ENCOUNTER 2019-10-08 06:45 | Outpatient (CLI) | payer OTHER ==
[2019-10-08 07:54] LABS: PLATELET COUNT 174 K/uL (152-353)
[2019-10-08 08:16] LABS: POTASSIUM 4.1 mmol/L (3.6-5.2)
== END 2019-10-08 19:40 | disposition home or self-care (01) ==
LOC: LAB 06:45
PROVIDERS: Internal Medicine
DX: Z79.899 Other long term (current) drug therapy (principal); E11.9 Type 2 diabetes mellitus without complications; Z51.81 Encounter for therapeutic drug level monitoring
CPT/HCPCS: 80053; 80164; 83036; 85027; 85610

== ENCOUNTER 2019-11-07 09:44 | Inpatient (IN) | payer OTHER | END 2019-12-06 12:45 | disposition still patient (30) | LOC: PAVA 09:44 | PROVIDERS: ADMIT Internal Medicine ==

== ENCOUNTER 2019-11-08 04:10 | Outpatient (CLI) | payer OTHER | END 2019-11-08 19:00 | disposition home or self-care (01) | LOC: LAB 04:10 | DX: Z79.899 Other long term (current) drug therapy (principal); R79.1 Abnormal coagulation profile | CPT/HCPCS: 85610 ==

== ENCOUNTER 2019-12-06 12:59 | Inpatient (IN) | payer OTHER | END 2020-01-06 08:58 | disposition still patient (30) | LOC: PAVA 12:59 | PROVIDERS: ADMIT Internal Medicine ==

== ENCOUNTER 2019-12-07 05:26 | Outpatient (CLI) | payer OTHER | END 2019-12-07 19:05 | disposition home or self-care (01) | LOC: LAB 05:26 | DX: Z79.899 Other long term (current) drug therapy (principal); Z79.01 Long term (current) use of anticoagulants | CPT/HCPCS: 85610 ==

== ENCOUNTER 2020-01-06 09:19 | Inpatient (IN) | payer OTHER | END 2020-02-05 08:02 | disposition still patient (30) | LOC: PAVA 09:19 | PROVIDERS: ADMIT Internal Medicine ==

== ENCOUNTER 2020-02-05 06:36 | Outpatient (CLI) | payer OTHER | END 2020-02-05 21:26 | disposition home or self-care (01) | LOC: LAB 06:36 | DX: I63.50 Cerebral infarction due to unspecified occlusion or stenosis of unspecified cerebral artery (principal); I69.351 Hemiplegia and hemiparesis following cerebral infarction affecting right dominant side; Z79.899 Other long term (current) drug therapy | CPT/HCPCS: 36415; 85610 ==

== ENCOUNTER 2020-02-05 08:34 | Inpatient (IN) | payer OTHER ==
[2020-02-22] MEDS ORDERED: WARF7.5T5 PO (09:51)
[2020-02-22] MEDS ORDERED: BENEPROTEIN6 GM PO (10:08)
[2020-02-22] MEDS ORDERED: VIT C/ACEROL500 MG PO (10:12)
[2020-03-03] MEDS ORDERED: APIX1TAB PO (10:33)
[2020-03-03] MEDS ORDERED: BACL10TA4 PO (10:42)
[2020-03-03] MEDS ORDERED: FURO40TA93 PO (10:44)
== END 2020-03-07 08:11 | disposition still patient (30) ==
LOC: PAVA 08:34
PROVIDERS: ADMIT Internal Medicine

== ENCOUNTER 2020-02-14 10:44 | Outpatient (CLI) | payer OTHER ==
[2020-02-14 11:14] LABS: POTASSIUM 3.8 mmol/L (3.6-5.2)
== END 2020-02-14 16:06 | disposition home or self-care (01) ==
LOC: LAB 10:44 → RAD 10:44 → LAB 16:06
PROVIDERS: Internal Medicine
DX: I50.9 Heart failure, unspecified (principal); R91.8 Other nonspecific abnormal finding of lung field
CPT/HCPCS: 80053; 83880

== ENCOUNTER 2020-02-15 07:41 | Outpatient (CLI) | payer OTHER ==
[2020-02-15 09:08] LABS: POTASSIUM 3.5 mmol/L (3.6-5.2)
== END 2020-02-15 22:19 | disposition home or self-care (01) ==
LOC: LAB 07:41
PROVIDERS: Nurse Practitioner
DX: U07.1 COVID-19 (principal); R06.02 Shortness of breath
CPT/HCPCS: 80053; 83880

== ENCOUNTER 2020-02-16 10:55 | Outpatient (CLI) | payer OTHER ==
[2020-02-16 12:00] LABS: POTASSIUM 3.3 mmol/L (3.6-5.2)
== END 2020-02-16 22:24 | disposition home or self-care (01) ==
LOC: LAB 10:55
PROVIDERS: Nurse Practitioner
DX: R79.89 Other specified abnormal findings of blood chemistry (principal); D68.8 Other specified coagulation defects
CPT/HCPCS: 80048; 85610; 87070; 87205

== ENCOUNTER 2020-02-17 11:28 | Outpatient (CLI) | payer OTHER | END 2020-02-17 22:23 | disposition home or self-care (01) | LOC: RAD 11:28 | DX: R22.2 Localized swelling, mass and lump, trunk (principal) ==

== ENCOUNTER 2020-02-18 06:37 | Outpatient (CLI) | payer OTHER | END 2020-02-18 18:57 | disposition home or self-care (01) | LOC: LAB 06:37 | DX: U07.1 COVID-19 (principal); Z79.01 Long term (current) use of anticoagulants | CPT/HCPCS: 85610 ==

== ENCOUNTER 2020-02-19 05:38 | Outpatient (CLI) | payer OTHER ==
[2020-02-19 11:10] LABS: POTASSIUM 4.8 mmol/L (3.6-5.2)
== END 2020-02-19 18:59 | disposition home or self-care (01) ==
LOC: LAB 05:38
PROVIDERS: Internal Medicine
DX: R79.89 Other specified abnormal findings of blood chemistry (principal); R79.1 Abnormal coagulation profile
CPT/HCPCS: 80048; 85610

== ENCOUNTER 2020-02-21 11:57 | Inpatient (IN) | payer OTHER ==
[~2020-02-21] VITALS: Ht 154.9 cm; Wt 93.6 kg
[2020-02-21] VITALS (12 sets, daily range): BP systolic 95–142; BP diastolic 29–59; TEMP 97–98.9; Ht 154.9 cm; Wt 93.6 kg
[2020-02-21 13:29] LABS: PLATELET COUNT 237 K/uL (152-353)
[2020-02-21 13:31] LABS: POTASSIUM 4.1 mmol/L (3.6-5.2); SODIUM 137 mmol/L (136-145)
[2020-02-21 13:35] LABS: PARTIAL THROMBOPLASTIN TIME 26.4 SECONDS (24.5-33.6)
[2020-02-22] VITALS (22 sets, daily range): BP systolic 90–135; BP diastolic 5–69; TEMP 98.1–99.7
[2020-02-22] MEDS ORDERED: WARF7.5T5 PO (09:51)
[2020-02-22] MEDS ORDERED: BENEPROTEIN6 GM PO (10:08)
[2020-02-22] MEDS ORDERED: VIT C/ACEROL500 MG PO (10:12)
[2020-02-22 12:33] LABS: PLATELET COUNT 205 K/uL (152-353)
[2020-02-22 13:12] LABS: POTASSIUM 3.7 mmol/L (3.6-5.2)
[2020-02-23] VITALS (24 sets, daily range): BP systolic 93–123; BP diastolic 34–56; TEMP 98–99.4
[2020-02-23 06:36] LABS: POTASSIUM 4.1 mmol/L (3.6-5.2)
[2020-02-23 06:56] LABS: PLATELET COUNT 220 K/uL (152-353)
[2020-02-24] VITALS (20 sets, daily range): BP systolic 87–1664; BP diastolic 31–70; TEMP 98–99.1
[2020-02-24 05:37] LABS: POTASSIUM 4.8 mmol/L (3.6-5.2)
[2020-02-25] VITALS (20 sets, daily range): BP systolic 110–131; BP diastolic 27–68; TEMP 97.7–99.3
[2020-02-25 08:01] LABS: PLATELET COUNT 221 K/uL (152-353)
[2020-02-25 08:22] LABS: POTASSIUM 4.9 mmol/L (3.6-5.2)
[2020-02-26] VITALS (22 sets, daily range): BP systolic 89–149; BP diastolic 30–64; TEMP 97.8–99.4
[2020-02-26 06:03] LABS: PLATELET COUNT 155 K/uL (152-353)
[2020-02-26 06:04] LABS: POTASSIUM 4.8 mmol/L (3.6-5.2)
[2020-02-27] VITALS (24 sets, daily range): BP systolic 86–136; BP diastolic 33–55; TEMP 97.9–99
[2020-02-27 05:19] LABS: POTASSIUM 4.6 mmol/L (3.6-5.2)
[2020-02-27 05:45] LABS: PLATELET COUNT 233 K/uL (152-353)
[2020-02-28] VITALS (22 sets, daily range): BP systolic 84–146; BP diastolic 30–68; TEMP 97.6–99
[2020-02-28 05:41] LABS: POTASSIUM 4.4 mmol/L (3.6-5.2)
[2020-02-28 06:16] LABS: PLATELET COUNT 221 K/uL (152-353)
[2020-02-29] VITALS (23 sets, daily range): BP systolic 90–122; BP diastolic 39–64; TEMP 97.2–98.7
[2020-02-29 05:45] LABS: PLATELET COUNT 230 K/uL (152-353)
[2020-02-29 05:53] LABS: POTASSIUM 4.2 mmol/L (3.6-5.2)
[2020-03-01] VITALS (23 sets, daily range): BP systolic 78–114; BP diastolic 35–56; TEMP 97.8–98.8
[2020-03-01 06:15] LABS: PLATELET COUNT 222 K/uL (152-353)
[2020-03-01 06:27] LABS: POTASSIUM 4.3 mmol/L (3.6-5.2)
[2020-03-02] VITALS (20 sets, daily range): BP systolic 91–122; BP diastolic 38–64; TEMP 97.7–98.1
[2020-03-03] VITALS (13 sets, daily range): BP systolic 87–126; BP diastolic 35–64; TEMP 97.3–97.8
[2020-03-03] MEDS ORDERED: APIX1TAB PO (10:33)
[2020-03-03] MEDS ORDERED: BACL10TA4 PO (10:42)
[2020-03-03] MEDS ORDERED: FURO40TA93 PO (10:44)
== END 2020-03-03 14:00 | DRG 177 ==
LOC: ED 11:57 → ICU 13:58
PROVIDERS: Hospitalist; Internal Medicine Endocrinology, Diabetes & Metabolism; ADMIT Internal Medicine
DX: U07.1 COVID-19 (principal); J96.01 Acute respiratory failure with hypoxia; J12.89 Other viral pneumonia; I69.351 Hemiplegia and hemiparesis following cerebral infarction affecting right dominant side; F03.90 Unspecified dementia, unspecified severity, without behavioral disturbance, psychotic disturbance, mood disturbance, and anxiety; K21.9 Gastro-esophageal reflux disease without esophagitis; E11.9 Type 2 diabetes mellitus without complications; I50.9 Heart failure, unspecified; I11.0 Hypertensive heart disease with heart failure; I95.89 Other hypotension; L08.89 Other specified local infections of the skin and subcutaneous tissue; B96.4 Proteus (mirabilis) (morganii) as the cause of diseases classified elsewhere
CPT/HCPCS: 36415; 36416; 36600; 51702; 80048; 80053; 80170; 81000; 82550; 82805; 82962; 83605; 83735; 83880; 84484; 85007; 85027; 85610; 85730; 87040; 93005; 94667; 94668; 94760; 96365; 99285; J0132; J1580; J1650; J1956; J3370; J3490

== ENCOUNTER 2020-03-07 08:24 | Inpatient (IN) | payer OTHER ==
[~2020-03-07 08:24] MED LIST changes: +APIX1TAB PO; +BACL10TA4 PO; +BENEPROTEIN6 GM PO; +VIT C/ACEROL500 MG PO; +WARF7.5T5 PO
== END 2020-04-06 08:25 | disposition still patient (30) ==
LOC: PAVA 08:24
PROVIDERS: ADMIT Internal Medicine
CPT/HCPCS: 87635; U0002

== ENCOUNTER 2020-03-07 12:36 | Outpatient (CLI) | payer OTHER | END 2020-03-07 19:54 | disposition home or self-care (01) | LOC: LAB 12:36 | DX: M85.88 Other specified disorders of bone density and structure, other site (principal) | CPT/HCPCS: 82310 ==

== ENCOUNTER 2020-03-08 03:10 | Outpatient (CLI) | payer OTHER | END 2020-03-08 19:04 | disposition home or self-care (01) | LOC: LAB 03:10 | DX: M85.88 Other specified disorders of bone density and structure, other site (principal) | CPT/HCPCS: 82310 ==

== ENCOUNTER 2020-04-06 08:57 | Inpatient (IN) | payer OTHER | END 2020-05-07 08:22 | disposition still patient (30) | LOC: PAVA 08:57 | PROVIDERS: ADMIT Internal Medicine ==

== ENCOUNTER 2020-04-08 06:04 | Outpatient (CLI) | payer OTHER ==
[2020-04-08 08:17] LABS: PLATELET COUNT 148 K/uL (152-353)
[2020-04-08 08:31] LABS: POTASSIUM 4.4 mmol/L (3.6-5.2)
== END 2020-04-08 19:33 | disposition home or self-care (01) ==
LOC: LAB 06:04
PROVIDERS: Internal Medicine
DX: Z79.899 Other long term (current) drug therapy (principal); E11.9 Type 2 diabetes mellitus without complications; I69.351 Hemiplegia and hemiparesis following cerebral infarction affecting right dominant side; I63.50 Cerebral infarction due to unspecified occlusion or stenosis of unspecified cerebral artery; I10 Essential (primary) hypertension; E87.6 Hypokalemia
CPT/HCPCS: 80053; 80164; 83036; 85027; 85610

== ENCOUNTER 2020-04-12 06:28 | Outpatient (CLI) | payer OTHER | END 2020-04-12 22:28 | disposition home or self-care (01) | LOC: LAB 06:28 | DX: Z79.01 Long term (current) use of anticoagulants (principal) | CPT/HCPCS: 85610 ==

== ENCOUNTER 2020-05-07 08:51 | Inpatient (IN) | payer OTHER | END 2020-06-07 10:49 | disposition still patient (30) | LOC: PAVA 08:51 | PROVIDERS: ADMIT Internal Medicine ==

== ENCOUNTER 2020-05-09 07:59 | Outpatient (CLI) | payer OTHER | END 2020-05-09 22:34 | disposition home or self-care (01) | LOC: LAB 07:59 | DX: Z79.899 Other long term (current) drug therapy (principal); Z51.81 Encounter for therapeutic drug level monitoring; I69.351 Hemiplegia and hemiparesis following cerebral infarction affecting right dominant side | CPT/HCPCS: 85610 ==

== ENCOUNTER 2020-06-07 11:21 | Inpatient (IN) | payer OTHER | END 2020-07-07 09:28 | disposition still patient (30) | LOC: PAVA 11:21 | PROVIDERS: ADMIT Internal Medicine ==

== ENCOUNTER 2020-06-08 07:14 | Outpatient (CLI) | payer OTHER | END 2020-06-08 23:54 | disposition home or self-care (01) | LOC: LAB 07:14 | DX: I69.351 Hemiplegia and hemiparesis following cerebral infarction affecting right dominant side (principal); I63.50 Cerebral infarction due to unspecified occlusion or stenosis of unspecified cerebral artery; Z79.899 Other long term (current) drug therapy | CPT/HCPCS: 85610 ==

== ENCOUNTER 2020-07-07 10:49 | Inpatient (IN) | payer OTHER | END 2020-08-07 08:00 | disposition still patient (30) | LOC: PAVA 10:49 | PROVIDERS: ADMIT Internal Medicine ==

== ENCOUNTER 2020-07-08 07:35 | Outpatient (CLI) | payer OTHER | END 2020-07-09 03:31 | disposition home or self-care (01) | LOC: LAB 07:35 | DX: E11.9 Type 2 diabetes mellitus without complications (principal); Z79.899 Other long term (current) drug therapy; I69.351 Hemiplegia and hemiparesis following cerebral infarction affecting right dominant side; I63.50 Cerebral infarction due to unspecified occlusion or stenosis of unspecified cerebral artery; E83.42 Hypomagnesemia | CPT/HCPCS: 83036; 83735; 85610 ==

== ENCOUNTER 2020-08-07 09:00 | Inpatient (IN) | payer OTHER | END 2020-09-06 08:35 | disposition still patient (30) | LOC: PAVA 09:00 | PROVIDERS: ADMIT Internal Medicine; ATTEND Internal Medicine ==

== ENCOUNTER 2020-08-09 12:42 | Outpatient (CLI) | payer OTHER | END 2020-08-09 23:36 | disposition home or self-care (01) | LOC: LAB 12:42 | DX: I69.351 Hemiplegia and hemiparesis following cerebral infarction affecting right dominant side (principal); Z79.899 Other long term (current) drug therapy; Z51.81 Encounter for therapeutic drug level monitoring ==

== ENCOUNTER 2020-08-11 08:33 | Outpatient (CLI) | payer OTHER | END 2020-08-11 20:17 | disposition home or self-care (01) | LOC: LAB 08:33 | DX: Z79.01 Long term (current) use of anticoagulants (principal) | CPT/HCPCS: 85610 ==

== ENCOUNTER 2020-08-28 06:23 | Outpatient (CLI) | payer OTHER | END 2020-08-28 19:01 | disposition home or self-care (01) | LOC: LAB 06:23 | PROVIDERS: ATTEND Internal Medicine | DX: Z79.899 Other long term (current) drug therapy (principal); Z79.01 Long term (current) use of anticoagulants | CPT/HCPCS: 85610 ==

== ENCOUNTER 2020-09-04 10:23 | Outpatient (CLI) | payer OTHER | END 2020-09-04 19:16 | disposition home or self-care (01) | LOC: LAB 10:23 | PROVIDERS: ATTEND Internal Medicine | DX: R53.83 Other fatigue (principal) | CPT/HCPCS: 81000 ==

== ENCOUNTER 2020-09-06 06:43 | Outpatient (CLI) | payer OTHER | END 2020-09-06 22:20 | disposition home or self-care (01) | LOC: LAB 06:43 | PROVIDERS: ATTEND Internal Medicine | DX: Z79.899 Other long term (current) drug therapy (principal); I69.351 Hemiplegia and hemiparesis following cerebral infarction affecting right dominant side; I63.50 Cerebral infarction due to unspecified occlusion or stenosis of unspecified cerebral artery; M85.80 Other specified disorders of bone density and structure, unspecified site | CPT/HCPCS: 82310; 85610 ==

== ENCOUNTER 2020-09-06 09:02 | Inpatient (IN) | payer OTHER | END 2020-10-07 08:28 | disposition still patient (30) | LOC: PAVA 09:02 | PROVIDERS: ADMIT Internal Medicine; ATTEND Internal Medicine ==

== ENCOUNTER 2020-09-21 14:03 | Outpatient (CLI) | payer OTHER | END 2020-09-21 22:16 | disposition home or self-care (01) | LOC: RAD 14:03 | PROVIDERS: ATTEND Internal Medicine | DX: M85.88 Other specified disorders of bone density and structure, other site (principal) ==

== ENCOUNTER 2020-10-07 08:46 | Inpatient (IN) | payer OTHER | END 2020-11-07 13:10 | disposition still patient (30) | LOC: PAVA 08:46 | PROVIDERS: ADMIT Internal Medicine; ATTEND Internal Medicine ==

== ENCOUNTER 2020-10-10 09:06 | Outpatient (CLI) | payer OTHER ==
[2020-10-10 09:35] LABS: PLATELET COUNT 130 K/uL (152-353)
== END 2020-10-10 21:07 | disposition home or self-care (01) ==
LOC: LAB 09:06
PROVIDERS: ATTEND Internal Medicine
DX: E11.9 Type 2 diabetes mellitus without complications (principal); I10 Essential (primary) hypertension; E87.6 Hypokalemia; Z51.81 Encounter for therapeutic drug level monitoring; Z79.01 Long term (current) use of anticoagulants
CPT/HCPCS: 80164; 83036; 85027; 85610

== ENCOUNTER 2020-10-25 08:40 | Outpatient (CLI) | payer OTHER ==
[2020-10-25 09:33] LABS: PARTIAL THROMBOPLASTIN TIME 27.6 SECONDS (24.5-33.6)
== END 2020-10-25 23:14 | disposition home or self-care (01) ==
LOC: LAB 08:40
PROVIDERS: ATTEND Internal Medicine
DX: I69.959 Hemiplegia and hemiparesis following unspecified cerebrovascular disease affecting unspecified side (principal); Z51.81 Encounter for therapeutic drug level monitoring
CPT/HCPCS: 85610; 85730

== ENCOUNTER 2020-11-07 14:09 | Inpatient (IN) | payer OTHER | END 2020-12-05 08:40 | disposition still patient (30) | LOC: PAVA 14:09 | PROVIDERS: ADMIT Internal Medicine; ATTEND Internal Medicine ==

== ENCOUNTER 2020-11-08 09:56 | Outpatient (CLI) | payer OTHER | END 2020-11-08 20:55 | disposition home or self-care (01) | LOC: LAB 09:56 | PROVIDERS: ATTEND Internal Medicine | DX: I63.50 Cerebral infarction due to unspecified occlusion or stenosis of unspecified cerebral artery (principal); I50.9 Heart failure, unspecified; Z79.01 Long term (current) use of anticoagulants | CPT/HCPCS: 85610 ==

== ENCOUNTER 2020-12-05 07:09 | Outpatient (CLI) | payer OTHER | END 2020-12-05 22:44 | disposition home or self-care (01) | LOC: LAB 07:09 | PROVIDERS: ATTEND Internal Medicine | DX: I50.9 Heart failure, unspecified (principal) | CPT/HCPCS: 85610 ==

== ENCOUNTER 2020-12-05 08:58 | Inpatient (IN) | payer OTHER | END 2021-01-05 08:33 | disposition still patient (30) | LOC: PAVA 08:58 | PROVIDERS: ADMIT Internal Medicine; ATTEND Internal Medicine ==

== ENCOUNTER 2021-01-05 09:36 | Inpatient (IN) | payer OTHER | END 2021-02-04 11:57 | disposition still patient (30) | LOC: PAVA 09:36 | PROVIDERS: ADMIT Internal Medicine; ATTEND Internal Medicine ==

== ENCOUNTER 2021-01-05 10:53 | Outpatient (CLI) | payer OTHER | END 2021-01-05 21:31 | disposition home or self-care (01) | LOC: LAB 10:53 | PROVIDERS: ATTEND Internal Medicine | DX: E11.9 Type 2 diabetes mellitus without complications (principal); E78.49 Other hyperlipidemia; Z79.01 Long term (current) use of anticoagulants | CPT/HCPCS: 80061; 83036; 83735; 85610 ==

== ENCOUNTER 2021-02-04 12:07 | Inpatient (IN) | payer OTHER | END 2021-03-07 13:24 | disposition still patient (30) | LOC: PAVA 12:07 | PROVIDERS: ADMIT Internal Medicine; ATTEND Internal Medicine ==

== ENCOUNTER 2021-02-06 07:27 | Outpatient (CLI) | payer OTHER | END 2021-02-06 19:11 | disposition home or self-care (01) | LOC: LAB 07:27 | PROVIDERS: ATTEND Internal Medicine | DX: I25.9 Chronic ischemic heart disease, unspecified (principal); I63.50 Cerebral infarction due to unspecified occlusion or stenosis of unspecified cerebral artery; E87.6 Hypokalemia; E78.49 Other hyperlipidemia | CPT/HCPCS: 85610 ==

== ENCOUNTER 2021-03-07 14:21 | Inpatient (IN) | payer OTHER | END 2021-04-06 08:00 | disposition still patient (30) | LOC: PAVA 14:21 | PROVIDERS: ADMIT Internal Medicine; ATTEND Internal Medicine ==

== ENCOUNTER 2021-03-09 07:06 | Outpatient (CLI) | payer OTHER | END 2021-03-09 22:40 | disposition home or self-care (01) | LOC: LAB 07:06 | PROVIDERS: ATTEND Internal Medicine | DX: E83.51 Hypocalcemia (principal); M85.88 Other specified disorders of bone density and structure, other site; Z79.01 Long term (current) use of anticoagulants | CPT/HCPCS: 82310; 85610 ==

== ENCOUNTER 2021-03-15 07:37 | Outpatient (CLI) | payer OTHER | END 2021-03-15 18:57 | disposition home or self-care (01) | LOC: LAB 07:37 | PROVIDERS: ATTEND Internal Medicine | DX: E83.51 Hypocalcemia (principal) | CPT/HCPCS: 82310 ==

== ENCOUNTER 2021-04-06 09:00 | Inpatient (IN) | payer OTHER | END 2021-05-07 08:00 | disposition still patient (30) | LOC: PAVA 09:00 | PROVIDERS: ADMIT Internal Medicine; ATTEND Internal Medicine ==

== ENCOUNTER 2021-04-10 09:42 | Outpatient (CLI) | payer OTHER ==
[2021-04-10 10:46] LABS: PLATELET COUNT 154 K/uL (152-353); POTASSIUM 4.7 mmol/L (3.6-5.2)
== END 2021-04-10 23:00 | disposition home or self-care (01) ==
LOC: LAB 09:42
PROVIDERS: ATTEND Internal Medicine
DX: E11.9 Type 2 diabetes mellitus without complications (principal); Z79.01 Long term (current) use of anticoagulants; I10 Essential (primary) hypertension; E87.6 Hypokalemia
CPT/HCPCS: 80053; 80164; 83036; 85027; 85610

== ENCOUNTER 2021-05-07 09:00 | Inpatient (IN) | payer OTHER | END 2021-06-07 09:08 | disposition still patient (30) | LOC: PAVA 09:00 | PROVIDERS: ADMIT Internal Medicine; ATTEND Internal Medicine ==

== ENCOUNTER 2021-05-11 06:45 | Outpatient (CLI) | payer OTHER | END 2021-05-11 20:15 | disposition home or self-care (01) | LOC: LAB 06:45 | PROVIDERS: ATTEND Internal Medicine | DX: I25.10 Atherosclerotic heart disease of native coronary artery without angina pectoris (principal); I63.50 Cerebral infarction due to unspecified occlusion or stenosis of unspecified cerebral artery; I69.351 Hemiplegia and hemiparesis following cerebral infarction affecting right dominant side; Z79.01 Long term (current) use of anticoagulants | CPT/HCPCS: 85610 ==

== ENCOUNTER 2021-06-07 09:44 | Inpatient (IN) | payer OTHER | END 2021-07-07 08:10 | disposition still patient (30) | LOC: PAVA 09:44 | PROVIDERS: ADMIT Internal Medicine; ATTEND Internal Medicine ==

== ENCOUNTER → 2021-06-07 | Outpatient (CLI) | payer OTHER | LOC: LAB 08:10 | PROVIDERS: ATTEND Internal Medicine | DX: R79.1 Abnormal coagulation profile (principal); I25.89 Other forms of chronic ischemic heart disease | CPT/HCPCS: 85610 ==

== ENCOUNTER 2021-07-10 08:01 | Outpatient (CLI) | payer OTHER | END 2021-07-10 21:05 | disposition home or self-care (01) | LOC: LAB 08:01 | PROVIDERS: ATTEND Internal Medicine | DX: E11.9 Type 2 diabetes mellitus without complications (principal); I10 Essential (primary) hypertension; I50.9 Heart failure, unspecified; Z51.81 Encounter for therapeutic drug level monitoring | CPT/HCPCS: 83036; 83735; 85610 ==

== ENCOUNTER 2021-08-08 07:39 | Outpatient (CLI) | payer OTHER | END 2021-08-08 21:17 | disposition home or self-care (01) | LOC: LAB 07:39 | PROVIDERS: ATTEND Internal Medicine | DX: I63.50 Cerebral infarction due to unspecified occlusion or stenosis of unspecified cerebral artery (principal) | CPT/HCPCS: 36415; 85610 ==

== ENCOUNTER 2021-09-06 09:04 | Inpatient (IN) | payer OTHER | END 2021-10-07 07:56 | disposition still patient (30) | LOC: PAVA 09:04 | PROVIDERS: ADMIT Internal Medicine; ATTEND Internal Medicine ==

== ENCOUNTER 2021-09-08 07:40 | Outpatient (CLI) | payer OTHER | END 2021-09-08 18:58 | disposition home or self-care (01) | LOC: LAB 07:40 | PROVIDERS: ATTEND Internal Medicine | DX: E83.51 Hypocalcemia (principal); D50.8 Other iron deficiency anemias; Z79.01 Long term (current) use of anticoagulants | CPT/HCPCS: 82310; 85610 ==

== ENCOUNTER 2021-10-07 08:11 | Inpatient (IN) | payer OTHER | END 2021-11-07 08:51 | disposition still patient (30) | LOC: PAVA 08:11 | PROVIDERS: ADMIT Internal Medicine; ATTEND Internal Medicine ==

== ENCOUNTER 2021-10-09 07:34 | Outpatient (CLI) | payer OTHER ==
[2021-10-09 07:54] LABS: PLATELET COUNT 125 K/uL (152-353)
[2021-10-09 08:06] LABS: POTASSIUM 4.7 mmol/L (3.6-5.2)
== END 2021-10-09 18:47 | disposition home or self-care (01) ==
LOC: LAB 07:34
PROVIDERS: ATTEND Internal Medicine
DX: E11.9 Type 2 diabetes mellitus without complications (principal); I10 Essential (primary) hypertension; Z79.01 Long term (current) use of anticoagulants
CPT/HCPCS: 80053; 80164; 83036; 85027; 85610

== ENCOUNTER 2021-11-07 10:47 | Inpatient (IN) | payer OTHER | END 2021-12-05 08:54 | disposition still patient (30) | LOC: PAVA 10:47 | PROVIDERS: ADMIT Internal Medicine; ATTEND Internal Medicine ==

== ENCOUNTER 2021-11-08 08:55 | Outpatient (CLI) | payer OTHER | END 2021-11-08 19:34 | disposition home or self-care (01) | LOC: LAB 08:55 | PROVIDERS: ATTEND Internal Medicine | DX: I10 Essential (primary) hypertension (principal); Z79.01 Long term (current) use of anticoagulants | CPT/HCPCS: 36415; 85610 ==

== ENCOUNTER 2021-12-05 10:57 | Inpatient (IN) | payer OTHER | END 2022-01-05 08:09 | disposition still patient (30) | LOC: PAVA 10:57 | PROVIDERS: ADMIT Internal Medicine; ATTEND Internal Medicine ==

== ENCOUNTER 2021-12-06 08:25 | Outpatient (CLI) | payer OTHER | END 2021-12-06 19:23 | disposition home or self-care (01) | LOC: LAB 08:25 | PROVIDERS: ATTEND Internal Medicine | DX: I63.50 Cerebral infarction due to unspecified occlusion or stenosis of unspecified cerebral artery (principal) | CPT/HCPCS: 85610 ==

== ENCOUNTER 2022-01-05 08:31 | Inpatient (IN) | payer OTHER | END 2022-02-04 10:51 | disposition still patient (30) | LOC: PAVA 08:31 | PROVIDERS: ADMIT Internal Medicine; ATTEND Internal Medicine ==

== ENCOUNTER 2022-01-05 08:58 | Outpatient (CLI) | payer OTHER | END 2022-01-05 20:49 | disposition home or self-care (01) | LOC: LAB 08:58 | PROVIDERS: ATTEND Internal Medicine | DX: E11.9 Type 2 diabetes mellitus without complications (principal); I10 Essential (primary) hypertension; Z79.01 Long term (current) use of anticoagulants | CPT/HCPCS: 80061; 83036; 83735; 85610 ==

== ENCOUNTER 2022-02-04 03:41 | Inpatient (IN) | payer OTHER | END 2022-03-07 09:25 | disposition still patient (30) | LOC: PAVA 03:41 | PROVIDERS: ADMIT Internal Medicine; ATTEND Internal Medicine ==

== ENCOUNTER 2022-02-06 07:11 | Outpatient (CLI) | payer OTHER | END 2022-02-06 18:56 | disposition home or self-care (01) | LOC: LAB 07:11 | PROVIDERS: ATTEND Internal Medicine | DX: I50.9 Heart failure, unspecified (principal) | CPT/HCPCS: 85610 ==

== ENCOUNTER 2022-03-07 11:26 | Inpatient (IN) | payer OTHER | END 2022-04-06 09:10 | disposition still patient (30) | LOC: PAVA 11:26 → PAVB 03-09 14:43 | PROVIDERS: ADMIT Internal Medicine; ATTEND Internal Medicine ==

== ENCOUNTER 2022-03-08 05:57 | Outpatient (CLI) | payer OTHER | END 2022-03-08 18:54 | disposition home or self-care (01) | LOC: LAB 05:57 | PROVIDERS: ATTEND Internal Medicine | DX: I10 Essential (primary) hypertension (principal); Z79.01 Long term (current) use of anticoagulants | CPT/HCPCS: 82310; 85610 ==

== ENCOUNTER 2022-04-06 11:59 | Inpatient (IN) | payer OTHER | END 2022-05-07 09:20 | disposition still patient (30) | LOC: PAVB 11:59 | PROVIDERS: ADMIT Internal Medicine; ATTEND Internal Medicine ==

== ENCOUNTER 2022-04-09 07:22 | Outpatient (CLI) | payer OTHER ==
[2022-04-09 08:27] LABS: PLATELET COUNT 149 K/uL (152-353)
[2022-04-09 08:37] LABS: POTASSIUM 4.6 mmol/L (3.6-5.2)
== END 2022-04-09 18:51 | disposition home or self-care (01) ==
LOC: LAB 07:22
PROVIDERS: ATTEND Internal Medicine
DX: E11.9 Type 2 diabetes mellitus without complications (principal); I10 Essential (primary) hypertension; Z79.01 Long term (current) use of anticoagulants
CPT/HCPCS: 80053; 80164; 83036; 85027; 85610

== ENCOUNTER 2022-05-07 13:28 | Inpatient (IN) | payer OTHER | END 2022-06-07 09:06 | disposition still patient (30) | LOC: PAVB 13:28 | PROVIDERS: ADMIT Internal Medicine; ATTEND Internal Medicine ==

== ENCOUNTER 2022-05-08 09:29 | Outpatient (CLI) | payer OTHER | END 2022-05-08 19:03 | disposition home or self-care (01) | LOC: LAB 09:29 | PROVIDERS: ATTEND Internal Medicine | DX: I10 Essential (primary) hypertension (principal); Z79.01 Long term (current) use of anticoagulants | CPT/HCPCS: 85610 ==

== ENCOUNTER 2022-05-22 07:30 | Outpatient (CLI) | payer OTHER | END 2022-05-22 20:53 | disposition home or self-care (01) | LOC: LAB 07:30 | PROVIDERS: ATTEND Internal Medicine Endocrinology, Diabetes & Metabolism | DX: I63.50 Cerebral infarction due to unspecified occlusion or stenosis of unspecified cerebral artery (principal); Z79.01 Long term (current) use of anticoagulants | CPT/HCPCS: 85610 ==

== ENCOUNTER 2022-05-30 07:32 | Outpatient (CLI) | payer OTHER | END 2022-05-30 19:20 | disposition home or self-care (01) | LOC: LAB 07:32 | PROVIDERS: ATTEND Internal Medicine Endocrinology, Diabetes & Metabolism | DX: I63.50 Cerebral infarction due to unspecified occlusion or stenosis of unspecified cerebral artery (principal); Z79.01 Long term (current) use of anticoagulants | CPT/HCPCS: 85610 ==

== ENCOUNTER 2022-06-07 13:23 | Inpatient (IN) | payer OTHER | END 2022-07-07 10:31 | disposition still patient (30) | LOC: PAVB 13:23 | PROVIDERS: ADMIT Internal Medicine Endocrinology, Diabetes & Metabolism; ATTEND Internal Medicine Endocrinology, Diabetes & Metabolism ==

== ENCOUNTER 2022-06-11 06:39 | Outpatient (CLI) | payer OTHER | END 2022-06-11 18:51 | disposition home or self-care (01) | LOC: LAB 06:39 | PROVIDERS: ATTEND Internal Medicine Endocrinology, Diabetes & Metabolism | DX: I63.50 Cerebral infarction due to unspecified occlusion or stenosis of unspecified cerebral artery (principal) | CPT/HCPCS: 36415; 85610 ==

== ENCOUNTER 2022-06-13 08:14 | Outpatient (CLI) | payer OTHER | END 2022-06-13 19:04 | disposition home or self-care (01) | LOC: LAB 08:14 | PROVIDERS: ATTEND Internal Medicine Endocrinology, Diabetes & Metabolism | DX: I63.50 Cerebral infarction due to unspecified occlusion or stenosis of unspecified cerebral artery (principal) | CPT/HCPCS: 85610 ==

== ENCOUNTER 2022-07-07 13:03 | Inpatient (IN) | payer OTHER | END 2022-08-07 10:55 | disposition still patient (30) | LOC: PAVB 13:03 | PROVIDERS: ADMIT Internal Medicine Endocrinology, Diabetes & Metabolism; ATTEND Internal Medicine Endocrinology, Diabetes & Metabolism ==

== ENCOUNTER 2022-07-09 11:05 | Outpatient (CLI) | payer OTHER | END 2022-07-09 20:45 | disposition home or self-care (01) | LOC: LAB 11:05 | PROVIDERS: ATTEND Internal Medicine Endocrinology, Diabetes & Metabolism | DX: E11.9 Type 2 diabetes mellitus without complications (principal); E83.42 Hypomagnesemia; Z79.01 Long term (current) use of anticoagulants | CPT/HCPCS: 83036; 83735; 85610 ==

== ENCOUNTER 2022-07-12 07:52 | Outpatient (CLI) | payer OTHER | END 2022-07-12 19:03 | disposition home or self-care (01) | LOC: LAB 07:52 | PROVIDERS: ATTEND Internal Medicine Endocrinology, Diabetes & Metabolism | DX: I69.351 Hemiplegia and hemiparesis following cerebral infarction affecting right dominant side (principal); Z51.81 Encounter for therapeutic drug level monitoring; Z79.899 Other long term (current) drug therapy | CPT/HCPCS: 36415; 85610 ==

== ENCOUNTER 2022-08-07 11:02 | Inpatient (IN) | payer OTHER | END 2022-09-06 10:39 | disposition still patient (30) | LOC: PAVB 11:02 | PROVIDERS: ADMIT Internal Medicine Endocrinology, Diabetes & Metabolism; ATTEND Internal Medicine Endocrinology, Diabetes & Metabolism ==

== ENCOUNTER → 2022-08-07 | Outpatient (CLI) | payer OTHER | LOC: LAB 09:38 | PROVIDERS: ATTEND Internal Medicine Endocrinology, Diabetes & Metabolism | DX: Z79.01 Long term (current) use of anticoagulants (principal) | CPT/HCPCS: 85610 ==

== ENCOUNTER 2022-09-06 10:52 | Inpatient (IN) | payer OTHER ==
[~2022-09-06 10:52] MED LIST changes: -MAG-OXIDE400 MG PO; +MAGNESIUM OXID400 M1 PO
[2022-09-22] MEDS ORDERED: ACTOS45 MG PO (10:45)
[2022-09-22] MEDS ORDERED: JANTOVEN7.5 MG PO (10:46)
[2022-09-22] MEDS ORDERED: WARF7.5T5 PO (10:46)
== END 2022-10-07 10:41 | disposition still patient (30) ==
LOC: PAVB 10:52
PROVIDERS: ADMIT Internal Medicine Endocrinology, Diabetes & Metabolism; ATTEND Internal Medicine Endocrinology, Diabetes & Metabolism

== ENCOUNTER 2022-09-06 11:04 | Outpatient (CLI) | payer OTHER ==
[~2022-09-06 11:04] MED LIST changes: +MAG-OXIDE400 MG PO; -MAGNESIUM OXID400 M1 PO
== END 2022-09-06 19:04 | disposition home or self-care (01) ==
LOC: LAB 11:04
PROVIDERS: ATTEND Internal Medicine Endocrinology, Diabetes & Metabolism
DX: M85.88 Other specified disorders of bone density and structure, other site (principal); Z79.01 Long term (current) use of anticoagulants
CPT/HCPCS: 85610

== ENCOUNTER 2022-09-07 08:39 | Outpatient (CLI) | payer OTHER | END 2022-09-07 19:16 | disposition home or self-care (01) | LOC: LAB 08:39 | PROVIDERS: ATTEND Internal Medicine Endocrinology, Diabetes & Metabolism | DX: E83.51 Hypocalcemia (principal) | CPT/HCPCS: 82310 ==

== ENCOUNTER 2022-09-10 15:59 | Outpatient (CLI) | payer OTHER | END 2022-09-10 19:37 | disposition home or self-care (01) | LOC: LAB 15:59 | PROVIDERS: ATTEND Internal Medicine Endocrinology, Diabetes & Metabolism | DX: R82.998 Other abnormal findings in urine (principal) | CPT/HCPCS: 81000 ==

== ENCOUNTER 2022-09-14 05:14 | Outpatient (CLI) | payer OTHER | END 2022-09-14 17:00 | disposition home or self-care (01) | LOC: LAB 05:14 | PROVIDERS: ATTEND Internal Medicine Endocrinology, Diabetes & Metabolism | DX: I25.10 Atherosclerotic heart disease of native coronary artery without angina pectoris (principal); I10 Essential (primary) hypertension; Z79.01 Long term (current) use of anticoagulants | CPT/HCPCS: 85610 ==

== ENCOUNTER 2022-09-19 06:03 | Outpatient (CLI) | payer OTHER | END 2022-09-19 19:01 | disposition home or self-care (01) | LOC: LAB 06:03 | PROVIDERS: ATTEND Internal Medicine Endocrinology, Diabetes & Metabolism | DX: I48.91 Unspecified atrial fibrillation (principal) | CPT/HCPCS: 85610 ==

== ENCOUNTER 2022-09-21 13:10 | Observation (INO) | payer OTHER ==
[2022-09-21] VITALS (9 sets, daily range): BP systolic 132–158; BP diastolic 61–90; TEMP 98–98.5; Ht 154.9 cm; Wt 99.8 kg
[~2022-09-21] VITALS: Ht 154.9 cm; Wt 99.8 kg
[~2022-09-21 13:10] MED LIST changes: -MAG-OXIDE400 MG PO; +MAGNESIUM OXID400 M1 PO
[2022-09-21 14:56] LABS: PLATELET COUNT 260 K/uL (152-353)
[2022-09-21 15:15] LABS: POTASSIUM 4.7 mmol/L (3.6-5.2)
[2022-09-22 01:28] VITALS: BP 156/78; TEMP 98.2
[2022-09-22 08:00] VITALS: BP 137/77; TEMP 98.7
[2022-09-22] MEDS ORDERED: ACTOS45 MG PO (10:45)
[2022-09-22] MEDS ORDERED: WARF7.5T5 PO (10:46)
[2022-09-22] MEDS ORDERED: JANTOVEN7.5 MG PO (10:46)
[2022-09-22 12:00] VITALS: BP 116/53; TEMP 98.7
[2022-09-22 17:28] VITALS: BP 111/54; TEMP 99.4
== END 2022-09-22 19:57 | disposition short-term general hospital (02) ==
LOC: ED 13:16 → MED/SURG 16:30
PROVIDERS: Internal Medicine; ADMIT Internal Medicine; ATTEND Internal Medicine
DX: R13.12 Dysphagia, oropharyngeal phase (principal); I69.391 Dysphagia following cerebral infarction; J69.0 Pneumonitis due to inhalation of food and vomit; M79.604 Pain in right leg; K21.9 Gastro-esophageal reflux disease without esophagitis; E11.9 Type 2 diabetes mellitus without complications; I69.351 Hemiplegia and hemiparesis following cerebral infarction affecting right dominant side; I50.9 Heart failure, unspecified; F03.90 Unspecified dementia, unspecified severity, without behavioral disturbance, psychotic disturbance, mood disturbance, and anxiety; G62.89 Other specified polyneuropathies; Z11.52 Encounter for screening for COVID-19
CPT/HCPCS: 80053; 85027; 87635; 94760; 96365; 96366; 99220; 99284; G0378; J1956; J2270; J3490; U0003

== ENCOUNTER 2022-10-07 12:42 | Inpatient (IN) | payer OTHER ==
[~2022-10-07 12:42] MED LIST changes: +JANTOVEN7.5 MG PO
== END 2022-11-07 08:43 | disposition still patient (30) ==
LOC: PAVB 12:42
PROVIDERS: ADMIT Internal Medicine Endocrinology, Diabetes & Metabolism; ATTEND Internal Medicine Endocrinology, Diabetes & Metabolism

== ENCOUNTER 2022-10-08 07:54 | Outpatient (CLI) | payer OTHER ==
[2022-10-08 08:24] LABS: PLATELET COUNT 379 K/uL (152-353)
== END 2022-10-08 19:04 | disposition home or self-care (01) ==
LOC: LAB 07:54
PROVIDERS: ATTEND Internal Medicine Endocrinology, Diabetes & Metabolism
DX: E11.9 Type 2 diabetes mellitus without complications (principal); I50.9 Heart failure, unspecified; Z79.01 Long term (current) use of anticoagulants; I11.0 Hypertensive heart disease with heart failure
CPT/HCPCS: 83036; 85027; 85610

== ENCOUNTER 2022-10-08 09:10 | Emergency (ER) | payer OTHER ==
[~2022-10-08] VITALS: Ht 154.9 cm; Wt 99.8 kg
[2022-10-08 09:10] VITALS: TEMP 97.3
[2022-10-08 09:52] LABS: POTASSIUM 3.6 mmol/L (3.6-5.2)
[2022-10-08 09:55] LABS: PLATELET COUNT 421 K/uL (152-353)
[2022-10-08 13:08] VITALS: BP 148/72
== END 2022-10-08 14:31 | disposition short-term general hospital (02) ==
LOC: ED 09:10
PROVIDERS: Emergency Medicine Emergency Medical Services
DX: D68.8 Other specified coagulation defects (principal); Z79.01 Long term (current) use of anticoagulants; J18.9 Pneumonia, unspecified organism; I50.9 Heart failure, unspecified; R41.0 Disorientation, unspecified; Z98.890 Other specified postprocedural states
CPT/HCPCS: 80053; 80164; 82272; 83880; 84484; 85027; 85610; 87040; 93005; 96365; 96372; 99284; J0696; J3430

== ENCOUNTER 2022-10-09 08:14 | Outpatient (CLI) | payer OTHER | END 2022-10-09 18:56 | disposition home or self-care (01) | LOC: LAB 08:14 | PROVIDERS: ATTEND Internal Medicine Endocrinology, Diabetes & Metabolism | DX: I10 Essential (primary) hypertension (principal); E11.9 Type 2 diabetes mellitus without complications | CPT/HCPCS: 80164 ==

== ENCOUNTER 2022-10-11 07:46 | Outpatient (CLI) | payer OTHER | END 2022-10-11 19:22 | disposition home or self-care (01) | LOC: LAB 07:46 | PROVIDERS: ATTEND Internal Medicine Endocrinology, Diabetes & Metabolism | DX: I63.50 Cerebral infarction due to unspecified occlusion or stenosis of unspecified cerebral artery (principal); Z51.81 Encounter for therapeutic drug level monitoring; Z79.899 Other long term (current) drug therapy | CPT/HCPCS: 85610 ==

== ENCOUNTER 2022-10-15 04:52 | Outpatient (CLI) | payer OTHER | END 2022-10-15 21:34 | disposition home or self-care (01) | LOC: LAB 04:52 | PROVIDERS: ATTEND Internal Medicine Endocrinology, Diabetes & Metabolism | DX: I69.351 Hemiplegia and hemiparesis following cerebral infarction affecting right dominant side (principal); I48.91 Unspecified atrial fibrillation | CPT/HCPCS: 85610 ==

== ENCOUNTER 2022-10-18 06:42 | Outpatient (CLI) | payer OTHER | END 2022-10-18 18:57 | disposition home or self-care (01) | LOC: LAB 06:42 | PROVIDERS: ATTEND Internal Medicine Endocrinology, Diabetes & Metabolism | DX: I25.9 Chronic ischemic heart disease, unspecified (principal); I48.91 Unspecified atrial fibrillation; I10 Essential (primary) hypertension | CPT/HCPCS: 36415; 85610 ==

== ENCOUNTER 2022-10-25 07:40 | Outpatient (CLI) | payer OTHER | END 2022-10-25 18:56 | disposition home or self-care (01) | LOC: LAB 07:40 | PROVIDERS: ATTEND Internal Medicine Endocrinology, Diabetes & Metabolism | DX: I69.351 Hemiplegia and hemiparesis following cerebral infarction affecting right dominant side (principal); Z51.81 Encounter for therapeutic drug level monitoring; Z79.899 Other long term (current) drug therapy | CPT/HCPCS: 85610 ==

== ENCOUNTER 2022-10-29 07:29 | Outpatient (CLI) | payer OTHER | END 2022-10-29 19:20 | disposition home or self-care (01) | LOC: LAB 07:29 | PROVIDERS: ATTEND Internal Medicine Endocrinology, Diabetes & Metabolism | DX: I69.351 Hemiplegia and hemiparesis following cerebral infarction affecting right dominant side (principal); Z51.81 Encounter for therapeutic drug level monitoring; Z79.899 Other long term (current) drug therapy | CPT/HCPCS: 85610 ==

== ENCOUNTER 2022-11-02 06:26 | Outpatient (CLI) | payer OTHER | END 2022-11-02 19:02 | disposition home or self-care (01) | LOC: LAB 06:26 | PROVIDERS: ATTEND Internal Medicine Endocrinology, Diabetes & Metabolism | DX: I69.351 Hemiplegia and hemiparesis following cerebral infarction affecting right dominant side (principal); Z79.01 Long term (current) use of anticoagulants | CPT/HCPCS: 36415; 85610 ==

== ENCOUNTER 2022-11-05 06:24 | Outpatient (CLI) | payer OTHER | END 2022-11-05 18:58 | disposition home or self-care (01) | LOC: LAB 06:24 | PROVIDERS: ATTEND Internal Medicine Endocrinology, Diabetes & Metabolism | DX: I69.351 Hemiplegia and hemiparesis following cerebral infarction affecting right dominant side (principal); Z79.01 Long term (current) use of anticoagulants | CPT/HCPCS: 85610 ==

== ENCOUNTER 2022-11-07 10:46 | Inpatient (IN) | payer OTHER | END 2022-12-05 12:02 | disposition still patient (30) | LOC: PAVB 10:46 | PROVIDERS: ADMIT Internal Medicine Endocrinology, Diabetes & Metabolism; ATTEND Internal Medicine Endocrinology, Diabetes & Metabolism ==

== ENCOUNTER 2022-11-08 07:32 | Outpatient (CLI) | payer OTHER | END 2022-11-08 21:43 | disposition home or self-care (01) | LOC: LAB 07:32 | PROVIDERS: ATTEND Internal Medicine Endocrinology, Diabetes & Metabolism | DX: I69.351 Hemiplegia and hemiparesis following cerebral infarction affecting right dominant side (principal); Z51.81 Encounter for therapeutic drug level monitoring; Z79.899 Other long term (current) drug therapy | CPT/HCPCS: 85610 ==

== ENCOUNTER → 2022-11-11 | Emergency (ER) | payer OTHER ==
[~2022-11-11] VITALS: Ht 154.9 cm; Wt 99.8 kg
[2022-11-11 14:49] LABS: PLATELET COUNT 224 K/uL (152-353)
[2022-11-11 14:55] LABS: POTASSIUM 3.4 mmol/L (3.6-5.2); SODIUM 147 mmol/L (136-145)
[2022-11-11 18:05] VITALS: BP 109/62; TEMP 98.6
== END ==
LOC: ED 14:02
PROVIDERS: Family Medicine
DX: I96 Gangrene, not elsewhere classified (principal); N17.8 Other acute kidney failure; R53.81 Other malaise; Z11.52 Encounter for screening for COVID-19
CPT/HCPCS: 36415; 80053; 81002; 82550; 83605; 84484; 85027; 85379; 86140; 87040; 87070; 87205; 87635; 93005; 96365; 99285; J0132; J2543; U0003

== ENCOUNTER 2022-11-26 15:32 | Outpatient (CLI) | payer OTHER ==
[2022-11-26 15:43] LABS: PLATELET COUNT 310 K/uL (152-353)
[2022-11-26 16:01] LABS: POTASSIUM 3.8 mmol/L (3.6-5.2)
== END 2022-11-26 21:56 | disposition home or self-care (01) ==
LOC: LAB 15:32
PROVIDERS: ATTEND Internal Medicine Endocrinology, Diabetes & Metabolism
DX: S81.801A Unspecified open wound, right lower leg, initial encounter (principal); Y92.89 Other specified places as the place of occurrence of the external cause
CPT/HCPCS: 36415; 80053; 85027; 87040

== ENCOUNTER 2022-11-29 10:22 | Emergency (ER) | payer OTHER ==
[~2022-11-29] VITALS: Ht 154.9 cm; Wt 90.7 kg
[2022-11-29 10:22] VITALS: BP 102/42; TEMP 98.7
[2022-11-29 11:19] LABS: PLATELET COUNT 282 K/uL (152-353)
[2022-11-29 11:32] LABS: SODIUM 139 mmol/L (136-145)
[2022-11-29 11:49] LABS: PARTIAL THROMBOPLASTIN TIME 38.1 SECONDS (24.5-33.6)
== END 2022-11-29 14:00 | disposition short-term general hospital (02) ==
LOC: ED 10:22
PROVIDERS: Emergency Medicine
DX: L89.894 Pressure ulcer of other site, stage 4 (principal); F03.90 Unspecified dementia, unspecified severity, without behavioral disturbance, psychotic disturbance, mood disturbance, and anxiety; I50.9 Heart failure, unspecified; Z11.52 Encounter for screening for COVID-19
CPT/HCPCS: 80053; 83605; 83880; 85027; 85610; 85730; 87635; 99284; U0003

== ENCOUNTER 2022-12-08 13:58 | Inpatient (IN) | payer OTHER ==
[~2022-12-08] VITALS: Ht 154.9 cm; Wt 90.3 kg
[2022-12-08] VITALS (15 sets, daily range): BP systolic 85–114; BP diastolic 34–61; TEMP 98.3–101.9; Ht 154.9 cm; Wt 90.3 kg
[2022-12-08 14:30] LABS: PLATELET COUNT 149 K/uL (152-353)
[2022-12-08 14:35] LABS: SODIUM 154 mmol/L (136-145)
[2022-12-09 04:00] VITALS: BP 89/38; TEMP 98.3
[2022-12-09 08:06] VITALS: BP 103/48; TEMP 99.6
[2022-12-09 08:14] LABS: PLATELET COUNT 110 K/uL (152-353)
[2022-12-09 08:26] LABS: POTASSIUM 3.8 mmol/L (3.6-5.2); SODIUM 155 mmol/L (136-145)
[2022-12-09 12:00] VITALS: BP 99/36; TEMP 98.3
[2022-12-09 16:00] VITALS: BP 90/33; TEMP 100.8
[2022-12-09 19:52] VITALS: BP 113/35; TEMP 99.9
[2022-12-09 23:32] VITALS: BP 89/29; TEMP 98.6
[2022-12-10] VITALS (9 sets, daily range): BP systolic 74–103; BP diastolic 26–45; TEMP 98–98.4
[2022-12-10 05:45] LABS: PLATELET COUNT 119 K/uL (152-353)
[2022-12-10 05:59] LABS: POTASSIUM 3.6 mmol/L (3.6-5.2); SODIUM 152 mmol/L (136-145)
[2022-12-11] VITALS: BP 88/33; TEMP 98.4
[2022-12-11 04:00] VITALS: BP 77/31; TEMP 98.6
[2022-12-11 08:00] VITALS: BP 108/40; TEMP 98.7
[2022-12-11 08:31] LABS: POTASSIUM 3.3 mmol/L (3.6-5.2); SODIUM 148 mmol/L (136-145)
[2022-12-11 08:33] LABS: PLATELET COUNT 115 K/uL (152-353)
[2022-12-11 12:00] VITALS: BP 107/39; TEMP 98.5
[2022-12-11 16:00] VITALS: BP 108/24; TEMP 99
[2022-12-11 20:00] VITALS: BP 105/37; TEMP 99.4
[2022-12-12] VITALS: BP 108/39; TEMP 98.6
[2022-12-12 04:00] VITALS: BP 99/47; TEMP 98.8
[2022-12-12 05:45] LABS: PLATELET COUNT 147 K/uL (152-353)
[2022-12-12 05:48] LABS: POTASSIUM 3.6 mmol/L (3.6-5.2); SODIUM 150 mmol/L (136-145)
[2022-12-12 08:00] VITALS: BP 121/35; TEMP 99.1
[2022-12-12 12:00] VITALS: BP 108/76; TEMP 98.9
== END 2022-12-12 20:07 | DRG 189 ==
LOC: ED 13:58 → MED/SURG 18:36
PROVIDERS: ADMIT Family Medicine; ATTEND Internal Medicine
PROC: 30233N1 Transfusion of Nonautologous Red Blood Cells into Peripheral Vein, Percutaneous Approach (ICD-10-PCS; principal; 2022-12-11)
DX: J96.01 Acute respiratory failure with hypoxia (principal); G93.41 Metabolic encephalopathy; J18.8 Other pneumonia, unspecified organism; E87.0 Hyperosmolality and hypernatremia; D64.89 Other specified anemias; I95.89 Other hypotension; I69.391 Dysphagia following cerebral infarction; I69.322 Dysarthria following cerebral infarction; R13.19 Other dysphagia; I11.0 Hypertensive heart disease with heart failure; I50.9 Heart failure, unspecified; E78.49 Other hyperlipidemia; Z89.611 Acquired absence of right leg above knee; E11.42 Type 2 diabetes mellitus with diabetic polyneuropathy
CPT/HCPCS: 36415; 51702; 80053; 81002; 82550; 82805; 82948; 83605; 83735; 84100; 84484; 85027; 85610; 85730; 86850; 86900; 86901; 86922; 87040; 93005; 94664; 94760; 96361; 96365; 96366; 96367; 96375; 96376; 99284; J0132; J0696; J2270; J3490; P9016